=== PATIENT | male | born 1955 | race Caucasian/White ===

== ENCOUNTER → 2017-10-22 07:53 | Outpatient (CLI) | payer OTHER, SELFPAY ==
[2017-10-22 10:08] LABS: Absolute Lymphocyte Count 1.19 X10^3/ul (0.83-4.51); Absolute Neutrophil Count 3.7 X10^3/uL (2.0-7.7); Basophil# 0.02 X10^3/uL; Basophil% 0.4 % (0-1); Eosinophil# 0.11 X10^3/uL; Hematocrit 36.8 % (40-54); Hemoglobin 12.6 g/dl (13.0-16.5); Lymphocyte # 1.19 X10^3/ul (4.0); Lymphocyte % 21.5 % (19-41); Mean Corp Hgb Conc 34.2 g/gl (32-36); Mean Corpuscular Hgb 30.6 pg (27.0-32.0); Mean Corpuscular Volume 89.3 fL (80-94); Mean Platelet Vol. 9.2 fl (6.2-12.0); Monocyte# 0.53 X10^3/uL; Monocyte% 9.6 % (0-10); Neutrophil # 3.69 X10^3/uL (2.7-7.7); Neutrophil % 66.5 % (47-70); Platelet Count 234 K/mm3 (150-450); RBC Distribution Width SD 38.5 fl (35.1-43.9); Red Blood Count 4.12 M/mm3 (4.6-6.2); White Blood Count 5.5 K/mm3 (4.4-11.0)
[2017-10-22 10:09] LABS: POSITIVE COUNT NO; POSITIVE DIFFERENTIAL NO; POSITIVE MORPHOLOGY NO
[2017-10-22 10:40] LABS: Anion Gap 10 (5-15); BUN 20 mg/dL (7-18); BUN/Creat Ratio 20.3 RATIO (10-20); Calcium,Total 8.6 mg/dL (8.5-10.1); Chloride 102 mmol/L (98-107); Cholesterol 126 mg/dL (200); Creatinine, Serum 0.98 mg/dL (0.70-1.30); EST Glomerular Filtration Rate 82 mL/min (>60); Est Glom Filt Rate - Afr Amer 99 mL/min (>60); Glucose 83 mg/dL (74-106); High Density Lipoprotein 46 mg/dL; Potassium 4.4 mmol/L (3.5-5.1); Sodium Level 138 mmol/L (136-145); Triglycerides 88 mg/dL; Very Low Density Lipoprotein 18 mg/dL (5-40)
== END ==
PROVIDERS: Family Provider Family Medicine; PCP Family Medicine; Visit Provider Family Medicine
DX: Z00.00 Encounter for general adult medical examination without abnormal findings (principal); Z13.220 Encounter for screening for lipoid disorders; Z13.1 Encounter for screening for diabetes mellitus
CPT/HCPCS: 36415; 80048; 80061; 85025

== ENCOUNTER → 2018-07-24 10:18 | Outpatient (CLI) | payer OTHER, SELFPAY ==
[2018-07-24 11:49] LABS: PSA,Total - Annual Screen 0.01 ng/mL (0.00-4.00)
== END ==
PROVIDERS: Family Provider Family Medicine; PCP Family Medicine; Referring Provider Urology; Visit Provider Urology
DX: Z12.5 Encounter for screening for malignant neoplasm of prostate (principal)
CPT/HCPCS: 36415; 84153; G0103

== ENCOUNTER → 2019-07-27 07:14 | Outpatient (CLI) | payer BC, SELFPAY ==
[2019-07-27 10:20] LABS: PSA,Total- Diagnostic < 0.01 ng/mL (0.0-4.0)
== END ==
LOC: LAB.FUTURE 07:24 → MTLAB 07:30
PROVIDERS: Family Provider Family Medicine; PCP Family Medicine; Referring Provider Urology; Visit Provider Urology
DX: C61 Malignant neoplasm of prostate (principal)
CPT/HCPCS: 36415; 84153

== ENCOUNTER → 2020-08-03 07:08 | Outpatient (CLI) | payer BC, MEDICARE, SELFPAY ==
[2020-08-03 10:47] LABS: Anion Gap 5 (5-15); BUN 16 mg/dL (7-18); BUN/Creat Ratio 15.2 RATIO (10-20); Calcium,Total 9.1 mg/dL (8.5-10.1); Chloride 105 mmol/L (98-107); Cholesterol 189 mg/dL (200); Creatinine, Serum 1.05 mg/dL (0.70-1.30); EST Glomerular Filtration Rate 75 mL/min (>60); Est Glom Filt Rate - Afr Amer 91 mL/min (>60); Glucose 79 mg/dL (74-106); High Density Lipoprotein 65 mg/dL; PSA,Total- Diagnostic < 0.01 ng/mL (0.0-4.0); Potassium 4.2 mmol/L (3.5-5.1); Sodium Level 139 mmol/L (136-145); Triglycerides 92 mg/dL; Very Low Density Lipoprotein 18 mg/dL (5-40)
== END ==
PROVIDERS: PCP Family Medicine; Referring Provider Family Medicine; Visit Provider Family Medicine
DX: C61 Malignant neoplasm of prostate (principal); Z85.46 Personal history of malignant neoplasm of prostate; Z13.220 Encounter for screening for lipoid disorders; Z13.1 Encounter for screening for diabetes mellitus
CPT/HCPCS: 36415; 80048; 80061; 84153

== ENCOUNTER → 2020-08-13 16:18 | Outpatient (CLI) | payer BC, MEDICARE, SELFPAY ==
[2020-08-13 16:50] LABS: Bacteria 0 SEEN /hpf (None Seen); Mucous, Urine 0 SEEN /hpf (<or=2+); Red Blood Cells-Urine 0 SEEN /hpf (0-5); Squamous Epithelial Cells - UA 0 SEEN /hpf (0-5); White Blood Cells 0 SEEN /hpf (0-5)
[2020-08-13 17:38] LABS: Color, Urine Yellow (Yellow); Glucose, Dipstick Normal (Normal); Ketone-Dipstick Negative (Negative); Leukocyte Esterase-Dipstick Negative /ul (Negative); Nitrite-Dipstick Negative (Negative); Occult Blood-Urine Negative /ul (Negative); Protein-Dipstick Negative (Negative); Urine Bilirubin Dipstick Negative (Negative); Urine Clarity Clear (Clear); Urine Urobilinogen Normal (Normal)
== END ==
PROVIDERS: PCP Family Medicine; Visit Provider Nurse Practitioner Adult Health
DX: R31.21 Asymptomatic microscopic hematuria (principal)
CPT/HCPCS: 81001

== ENCOUNTER 2021-08-19 11:15 | Outpatient (CLI) | payer MEDICARE, BC, SELFPAY ==
[2021-08-19 14:44] LABS: PSA,Total- Diagnostic 0.01 ng/mL (0.0-4.0)
== END 2021-08-19 23:59 | disposition short-term general hospital (02) ==
LOC: MTLAB 11:20
PROVIDERS: Referring Provider Urology; Visit Provider Urology
DX: C61 Malignant neoplasm of prostate (principal)
CPT/HCPCS: 36415; 84153

== ENCOUNTER → 2022-04-04 | Outpatient (CLI) | payer MEDICARE, SELFPAY ==
[2022-04-04 15:25] LABS: Vitamin D,25 Hydroxy 33.8 ng/mL
[2022-04-04 15:30] LABS: Anion Gap 6 (5-15); BUN 16 mg/dL (7-18); BUN/Creat Ratio 15.5 RATIO (10-20); Calcium,Total 9.1 mg/dL (8.5-10.1); Chloride 103 mmol/L (98-107); Cholesterol 212 mg/dL (200); Creatinine, Serum 1.03 mg/dL (0.70-1.30); EST Glomerular Filtration Rate 77 mL/min (>60); Est Glom Filt Rate - Afr Amer 93 mL/min (>60); Glucose 92 mg/dL (74-106); High Density Lipoprotein 70 mg/dL; Potassium 4.5 mmol/L (3.5-5.1); Sodium Level 138 mmol/L (136-145); Triglycerides 89 mg/dL; Very Low Density Lipoprotein 18 mg/dL (5-40)
== END | disposition home or self-care (01) ==
PROVIDERS: PCP Family Medicine; Referring Provider Family Medicine; Visit Provider Family Medicine
DX: Z00.00 Encounter for general adult medical examination without abnormal findings (principal)
CPT/HCPCS: 36415; 80048; 80061; 82306

== ENCOUNTER → 2022-08-26 | Outpatient (CLI) | payer MEDICARE, SELFPAY ==
[2022-08-26 13:19] LABS: PSA,Total- Diagnostic < 0.01 ng/mL (0.0-4.0)
== END | disposition home or self-care (01) ==
LOC: MTLAB 10:06
PROVIDERS: PCP Family Medicine; Referring Provider Urology; Visit Provider Urology
DX: C61 Malignant neoplasm of prostate (principal)
CPT/HCPCS: 36415; 84153

== ENCOUNTER → 2023-04-06 | Outpatient (CLI) | payer MEDICARE, SELFPAY ==
[2023-04-06 15:43] LABS: Cholesterol 190 mg/dL (200); High Density Lipoprotein 73 mg/dL; Triglycerides 88 mg/dL; Very Low Density Lipoprotein 18 mg/dL (5-40)
== END | disposition home or self-care (01) ==
LOC: MFPLAB 11:07
PROVIDERS: PCP Family Medicine; Visit Provider Family Medicine
DX: E78.5 Hyperlipidemia, unspecified (principal)
CPT/HCPCS: 36415; 80061

== ENCOUNTER 2023-09-03 22:43 | Emergency (ER) | payer MEDICARE, SELFPAY ==
[2023-09-03 22:45] VITALS: BP 166/76; PULSE 50; RESP 16; TEMP 35.9; O2SAT 100; BMI 21.5
[2023-09-03 23:01] VITALS: BP 135/75; PULSE 61; RESP 16; TEMP 36.7; O2SAT 100
--- NOTE | 2023-09-03 23:14 | EKG12_ITS ---
Test Reason : CP Blood Pressure : / mmHG Vent. Rate : 048 BPM Atrial Rate : 048 BPM P-R Int : 186 ms QRS Dur : 088 ms QT Int : 410 ms P-R-T Axes : 058 021 045 degrees QTc Int : 366 ms Sinus bradycardia with sinus arrhythmia Minimal voltage criteria for LVH, may be normal variant ( Sokolow-Vazquez ) Borderline ECG Confirmed by ANNELISE MIRANDA, ALEENA ([id number]), editor newspaper KELLY CRAWFORD ([id number]) on 09/04/2023 10:29:21 AM Referred By: Confirmed By:ALEENA CASTELAN MD
[2023-09-03 23:22] LABS: Absolute Lymphocyte Count 2.59 X10^3/uL (0.83-4.51); Absolute Neutrophil Count 2.6 X10^3/uL (2.0-7.7); Basophil# 0.03 X10^3/uL; Basophil% 0.5 % (0-1); Eosinophil# 0.08 X10^3/uL; Eosinophils% 1.4 % (0-5); Hemoglobin 11.4 g/dL (13.0-16.5); Lymphocyte # 2.59 X10^3/ul (0.83-4.51); Lymphocyte % 43.8 % (19-41); Mean Corp Hgb Conc 33.5 g/dL (32-36); Mean Corpuscular Hgb 30.2 pg (27.0-32.0); Mean Corpuscular Volume 90.2 fL (80-94); Mean Platelet Vol. 8.7 fl (6.2-12.0); Monocyte# 0.58 X10^3/uL; Monocyte% 9.8 % (0-10); NRBC Flagged by Analyzer 0 % (0-5); Neutrophil # 2.62 X10^3/uL (2.7-7.7); Neutrophil % 44.3 % (47-70); Platelet Count 192 K/mm3 (150-450); RBC Distribution Width CV 12.2 % (11.6-14.6); RBC Distribution Width SD 40.2 fl (35.1-43.9); Red Blood Count 3.77 M/mm3 (4.6-6.2); White Blood Count 5.9 K/mm3 (4.4-11.0)
--- NOTE | 2023-09-03 23:23 | RAD_ITS ---
INDICATION: chest pain EXAMINATION/TECHNIQUE: X-RAY - XR Chest 1 View COMPARISON: No relevant prior comparison studies available. FINDINGS: LINES/DEVICES: None. LUNGS: Symmetric normal lung volumes. No airspace opacity or abnormal interstitial pattern. No nodule or mass. No pleural effusion or pneumothorax. MEDIASTINUM AND CARDIOVASCULAR STRUCTURES: Normal size and contour of the cardiomediastinal silhouette. No evidence of pulmonary vascular congestion. BONES AND SOFT TISSUES: No fracture or focal osseous lesion. RAD/Chest 1 View (Portable) IMPRESSION: 1. No radiographic evidence of acute cardiopulmonary disease. Electronically Signed: Sean Thomas DO at 0:02 EST ,
[2023-09-03 23:25] VITALS: O2SAT 99
--- NOTE | 2023-09-03 23:28 | EDS_ITS ---
HPI History of Present Illness Chief Complaint: Chest Pain Informant: patient and spouse/S.O. Narrative Narrative: 68-year-old healthy male presenting to the emergency department chief complaint of chest pain. Patient states he is an avid runner. He has left he states that he is in pretty good health not being treated for any medical problems. States that he ran yesterday about 3-1/2 miles did not have any problems. Tonight around 1800 hrs. after having some vegetable soup began to have a dull pressure left upper chest. Nonradiating. He states that originally lasted only a couple minutes would go away for about 30 minutes and then would return the last episode around 9:00 lasted for about 45 minutes. He does not note any associated nausea vomiting dyspnea sweating. He believes that his left hand was tingly. Currently he is not having any symptoms. He denies any change in exercise tolerance recently. [facility] Home Medications ciprofloxacin HCl 250 mg tablet 250 mg PO DAILY ##10 09/23/13 [Rx Last Taken Unknown] docusate sodium 100 mg capsule (DOK) 100 mg PO BID ##20 09/23/13 [Rx Last Taken Unknown] hydrocodone 5 mg-acetaminophen 300 mg tablet (Vicodin) 1 - 2 tab PO Q4H PRN PRN Pain #14 tabs 09/23/13 [Rx Last Taken Unknown] Allergy/AdvReac Type Severity Reaction Status Date / Time No Known Allergies Allergy Verified 09/03/23 22:47 Social History household members: spouse housing: house Smoking Status: Never smoker ROS [facility] ED Constitutional Constitutional ED: Denies chills, fever(s) or weight loss Eyes Eyes: Denies change in vision or diplopia ENT ENT ED: Denies ear pain, rhinorrhea or sore throat Cardiovascular Cardiovascular: Reports chest pain; Denies orthopnea, palpitations or racing heartbeat Respiratory/Chest Respiratory/Chest: Denies cough, dyspnea or orthopnea Gastrointestinal Gastrointestinal: Denies abdominal pain, diarrhea, nausea or vomiting Genitourinary Genitourinary ED: Denies dysuria, hematuria or urinary frequency Musculoskeletal Musculoskeletal: Denies arthralgias or myalgias Integumentary Denies abscess or rash Neurologic Neurologic: Denies headache(s) or weakness Psychiatric Psychiatric: Denies anxiety, depression, suicidal ideation or suicidal thoughts Endocrine Endocrinology: Denies polydipsia, polyphagia or polyuria Allergic/Immunologic Allergic/Immunologic ED: Denies mouth swelling, tongue swelling or urticaria EXAM Physical Exam Const Vital Signs: 09/03/23 22:45 09/03/23 23:01 09/03/23 23:02 Temperature 96.6 F L 98.1 F Temperature Source Temporal Temporal Pulse Rate 50 L 61 Respiratory Rate 16 16 Respiratory Effort Normal Blood Pressure 166/76 H 135/75 H Blood Pressure Mean 106 95 Pulse Ox 100 100 Oxygen Delivery Method Room Air Room Air 09/03/23 23:25 09/04/23 00:00 Temperature 98.1 F Temperature Source Temporal Pulse Rate 44 L Respiratory Rate 12 Respiratory Effort Blood Pressure 149/89 H Blood Pressure Mean 109 Pulse Ox 99 Oxygen Delivery Method Room Air Room Air Positive well nourished and well developed General Appearance ED: well developed HEENT Reports normocephalic, head/scalp atraumatic and moist mucous membranes Eyes PERRL and EOMs intact bilaterally Neck no lymphadenopathy, supple and no JVD Resp normal respiratory effort and clear to auscultation bilaterally Cardio regular rate, regular rhythm and no murmurs GI normal to inspection, nondistended, normoactive bowel sounds and non-tender Palpation: soft Back/Spine no CVA tenderness and normal ROM Extremity normal to inspection General Extremety ED: Negative for edema General Extremity: Negative for edema Neuro oriented x3 and CN's II-XII intact bilaterally Sensorium / Orientation: alert Motor Exam: strength 5/5 throughout Psych mental status grossly normal Mood & Affect: Negative for depressed or tearful Skin no rashes or lesions noted and no wounds Heart Score History: Slightly/Non-Suspicious ECG: Normal Age: >/= 65 years Risk Factors: No Risk Factors Troponin: </= Normal Limit Score: 2 MDM MDM MDM Narrative Medical decision making narrative: 2 sets of cardiac enzymes are normal at 6. CBC with a hemoglobin 11.4. BMP showed glucose 130. My independent interpretation of the chest x-ray is no acute process. Patient's had no events on the monitor. He has been symptom- free. He had previously taken aspirin 324 mg at home. At this point I advised follow-up with primary care. Monitoring his symptoms. As discussed with him because he is an avid runner and appears in such good shape he may be able to beat a treadmill stress test. He was advised to continue to monitor for secondary signs besides chest pain such as a decrease in exercise tolerance early fatigue dyspnea. He notes understanding will monitor follow-up return if worsening or concerns History & Record Review Discussion w/independent historian: Patient and Significant other Lab Data Attestation: I reviewed the patient's lab results. Labs: Laboratory Results - last 24 hr 09/03/23 09/04/23 23:13 01:20 WBC 5.9 RBC 3.77 L Hgb 11.4 L Hct 34.0 L MCV 90.2 MCH 30.2 MCHC 33.5 RDW Std Deviation 40.2 RDW Coeff of Benito 12.2 Plt Count 192 MPV 8.7 Immature Gran % (Auto) 0.200 Neut % (Auto) 44.3 L Lymph % (Auto) 43.8 H [place] % (Auto) 9.8 Eos % (Auto) 1.4 Baso % (Auto) 0.5 Absolute Neuts (auto) 2.6 Absolute Lymphs (auto) 2.59 Nucleated RBC % 0 Sodium 138 Potassium 4.2 Chloride 107 Carbon Dioxide 26.0 Anion Gap 5 BUN 19 H Creatinine 0.98 Estim Creat Clear Calc 67.58 Est GFR (MDRD) Af Amer 98 Est GFR (MDRD) Non-Af 81 BUN/Creatinine Ratio 19.3 Glucose 130 H Calcium 8.6 Troponin I High Sens 6 6 Radiography Diagnostic Testing: Clinical Impression(s) from Imaging Studies Chest X-Ray 09/03/23 23:23 IMPRESSION: 1. No radiographic evidence of acute cardiopulmonary disease. Electronically Signed: Sean Thomas DO at 0:02 EST , EKG Initial EKG: Attestation: I personally reviewed and interpreted this EKG as follows: Comments: Sinus bradycardia with a ventricular rate of 48 bpm. No concerning features of ACS noted. 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 Next of kin: [place] law dictates a PRIORITY LIST for identifying legal decision-maker/legal next of kin in the following order (LNOK): 1st: The patient?s legal guardian, if any 2nd: The patient's spouse (if status is questionable, consult Risk Management) 3rd: The patient?s adult child(fior) (majority, if multiple children) 4th: The patient?s parents 5th: The patient?s adult siblings (majority, if multiple children siblings)
[2023-09-03 23:44] LABS: Anion Gap 5 (5-15); BUN 19 mg/dL (7-18); BUN/Creat Ratio 19.3 RATIO (10-20); Calcium,Total 8.6 mg/dL (8.5-10.1); Chloride 107 mmol/L (98-107); Creatinine, Serum 0.98 mg/dL (0.70-1.30); EST Glomerular Filtration Rate 81 mL/min (>60); Est Glom Filt Rate - Afr Amer 98 mL/min (>60); Estimated Creatinine Clearance 67.58 ml/min; Glucose 130 mg/dL (74-106); Potassium 4.2 mmol/L (3.5-5.1); Sodium Level 138 mmol/L (136-145); Troponin-I HS (w/2H Reflex) 6 pg/mL (3.0-78.0)
[2023-09-04] VITALS: BP 149/89; PULSE 44; RESP 12; TEMP 36.7
[2023-09-04 01:00] VITALS: BP 132/72; PULSE 51; RESP 16; TEMP 37.2
[2023-09-04 01:19] LABS: Reflex Troponin-HS? (from REC) Y
[2023-09-04 01:45] LABS: Troponin-I HS 6 pg/mL (3.0-78.0)
[2023-09-04 02:00] VITALS: BP 149/89; PULSE 51; RESP 16; TEMP 37.2
[2023-09-04 02:08] VITALS: BP 143/72; PULSE 50; RESP 16; TEMP 36.6; O2SAT 100
== END 2023-09-04 02:13 | disposition home or self-care (01) ==
PROVIDERS: Emergency Provider Emergency Medicine; PCP Family Medicine; Visit Provider Emergency Medicine
DX: R07.9 Chest pain, unspecified (principal)
CPT/HCPCS: 71045; 80048; 84484; 85025; 93005; 99284; A4216

== ENCOUNTER → 2024-04-12 | Outpatient (CLI) | payer MEDICARE, SELFPAY ==
[2024-04-12 16:05] LABS: Anion Gap 6 (5-15); BUN 18 mg/dL (7-18); BUN/Creat Ratio 17.8 RATIO (10-20); Calcium,Total 9.4 mg/dL (8.5-10.1); Chloride 104 mmol/L (98-107); Cholesterol 195 mg/dL (200); Creatinine, Serum 1.01 mg/dL (0.70-1.30); EST Glomerular Filtration Rate 78 mL/min (>60); Est Glom Filt Rate - Afr Amer 94 mL/min (>60); Glucose 97 mg/dL (74-106); High Density Lipoprotein 71 mg/dL; PSA,Total- Diagnostic 0.01 ng/mL (0.0-4.0); Potassium 4.7 mmol/L (3.5-5.1); Sodium Level 139 mmol/L (136-145); Triglycerides 111 mg/dL; Very Low Density Lipoprotein 22 mg/dL (5-40)
== END | disposition home or self-care (01) ==
PROVIDERS: PCP Family Medicine; Referring Provider Family Medicine; Visit Provider Family Medicine
DX: Z00.00 Encounter for general adult medical examination without abnormal findings (principal); E78.5 Hyperlipidemia, unspecified; Z85.46 Personal history of malignant neoplasm of prostate
CPT/HCPCS: 36415; 80048; 80061; 84153

== ENCOUNTER 2024-05-11 14:40 | Outpatient (CLI) | payer SELFPAY ==
--- NOTE | 2024-05-11 14:45 | CT_ITS ---
STUDY: CT CHEST WITHOUT CONTRAST REASON FOR EXAM: Male, 69 years old. SCREEN RADIATION DOSAGE (If Supplied By Facility): CTDIvol = ( 12.19 ) mGy, DLP = ( 219.42 ) mGycm TECHNIQUE: Transaxial imaging was performed without the administration of intravenous contrast material. Cardiac over read examination. Individualized dose optimization techniques were used for this CT. COMPARISON: No relevant priors. FINDINGS: CHEST Minimal increased linear markings at the lung bases suggestive of underlying atelectasis and/or scarring. There is no demonstrated pleural abnormality. There are calcifications of the coronary arteries. There are small lymph nodes within the mediastinum, which are normal in size and morphology most compatible with reactive lymph hyperplasia. Normal hilar regions. Normal unenhanced pulmonary arteries. Normal aorta arch and descending thoracic aorta. Normal osseous structures. There is no demonstrated abnormality of the visualized upper abdomen. CT/Limited Chest CT Cardiac Only IMPRESSION: Coronary artery calcification. Electronically Signed: Rodrigue Dorantes MD at 9:22 EDT ,
--- NOTE | 2024-05-11 16:37 | CA.SCORE ---
Calcium Scoring Date of Study:: 05/11/24 Coronary Calcium Scoring: High-resolution Computed Tomographic imaging of the chest was performed on [05/11/24 ], with particular attention paid to the coronary arteries. Images from the examination were analyzed for the presence and extent of coronary artery calcification , using coronary calcium quantification software. The patient tolerated the procedure well and there were no complications. The results of the coronary calcification analysis are provided below. Findings Coronary Artery Left Main (LM): 0 Left Anterior Descending (LAD): 95 Left Circumflex (LCX): 0 Right Coronary Artery (RCA): 0 Total Agatston Score: 95 Percentile Rankin-50% Calcium Scoring Interpretation: Different methods to categorize the overall amount of coronary plaque. Overall amount CAC SIS Visual of coronary plaque P1 Mild -100 <2 1-2 vessels with mild amount of plaque P2 Moderate 101-300 3-4 1-2 vessels with moderate amount, 3 vessels with mild amount of plaque P3 Severe 301-999 5-7 3 vessels with moderate amount, 1 vessel with severe amount of plaque P4 Extensive >1000 >8 2-3 vessels with severe amount of plaque Calcium Score: Mild: 1-2 vessels w/mild amount of plaque Conclusion: Mild plaquing noted.
== END 2024-05-11 23:59 | disposition home or self-care (01) ==
LOC: CT 14:44
PROVIDERS: PCP Family Medicine; Referring Provider Family Medicine; Visit Provider Family Medicine
DX: Z00.00 Encounter for general adult medical examination without abnormal findings (principal); I25.10 Atherosclerotic heart disease of native coronary artery without angina pectoris; I25.83 Coronary atherosclerosis due to lipid rich plaque
CPT/HCPCS: 75571; 76380

== ENCOUNTER → 2024-06-06 | Outpatient (CLI) | payer MEDICARE, SELFPAY ==
--- NOTE | 2024-06-06 10:18 | STRESSREP_ITS ---
Stress Test Report Date: 06/06/2024 Procedure: Exercise tolerance test/imaging study Indications: Coronary artery disease Consent: Per the patient Procedure: The patient exercised on a Edison protocol for 12 minutes achieving a peak heart rate of 146 bpm (96% predicted maximal heart rate) with a peak blood pressure 176/70 mmHg and a peak MET capacity of 13.7 METs. The baseline ECG demonstrated sinus rhythm. The peak exercise ECG demonstrated ST changes in inferior and lateral leads suggestive of ischemia. There were no cardiac dysrhythmias pretest, during exercise, or recovery. The functional capacity was considered excellent. There was no complaint of chest discomfort during exercise or recovery. The examination was discontinued secondary to target heart rate being achieved. The patient was injected with 10.1 mCi of technetium 99m Cardiolite and subsequently rest SPECT Cardiolite nuclear imaging was obtained in the horizonta l long, vertical long, and short axis views. Post-exercise, the patient was injected with 31.7 mCi of technetium 99m Cardiolite and subsequently stress SPECT Cardiolite nuclear imaging was obtained in the horizontal long, vertical long, and short axis views. A gated Cardiolite study at peak stress was obtained. Rest and stress SPECT Cardiolite nuclear imaging status post realignment, normalization, and attenuation correction, demonstrates the appearance of relative uniform tracer uptake and myocardial perfusion appearing within normal limits. There is end systolic thickening and brightening. The gated Cardiolite study demonstrates myocardial thickening and inward wall motion. The reported LVEF is 57%. Impression: 1. Technically adequate (percent predicted maximal heart rate greater than 85%) exercise tolerance test. Excellent functional capacity for age. No complaints of chest pain 2. Peak exercise ECG with ST changes suggestive of ischemia 3. There were no cardiac dysrhythmias pretest, during exercise, or recovery 4. Rest and stress SPECT Cardiolite nuclear imaging demonstrate relative uniform tracer uptake and myocardial perfusion appearing within normal limits. 5. The gated Cardiolite study reports an LVEF of 57%. This note was generated with [employer] software. It may contain incorrect words, spelling, and punctuation that were not noted in checking the note before signing.
== END | disposition home or self-care (01) ==
PROVIDERS: PCP Family Medicine; Referring Provider Family Medicine; Visit Provider Family Medicine
DX: R94.30 Abnormal result of cardiovascular function study, unspecified (principal); I25.10 Atherosclerotic heart disease of native coronary artery without angina pectoris
CPT/HCPCS: 78452; 93017; A9500; A4216

== ENCOUNTER → 2024-12-05 | Outpatient (CLI) | payer MEDICARE, SELFPAY ==
--- NOTE | 2024-12-05 09:14 | RAD_ITS ---
PROCEDURE: SHOULDER MIN 2 VIEWS 12/05/2024 REASON FOR EXAM: PAIN TECHNIQUE: Four views of the right shoulder COMPARISON: None FINDINGS: Bones: Unremarkable. Joints: No significant joint space narrowing is seen. Soft tissues: Soft tissues are unremarkable. Other: RAD/Shoulder min 2 Views IMPRESSION: NO ACUTE FRACTURE OR DISLOCATION. Reading Location: [place] [id number]
--- NOTE | 2024-12-05 09:17 | RAD_ITS ---
PROCEDURE: CLAVICLE 12/05/2024 REASON FOR EXAM: PAIN TECHNIQUE: 2 view(s) of the right clavicle COMPARISON: None FINDINGS: RIGHT CLAVICLE: Bones right: Unremarkable Joints right: Unremarkable Soft tissues right: Unremarkable RAD/Clavicle IMPRESSION: NO EVIDENCE OF CLAVICLE FRACTURE Reading Location: [place] [id number]
== END | disposition home or self-care (01) ==
LOC: MTRAD 09:12
PROVIDERS: PCP Family Medicine; Referring Provider Family Medicine; Visit Provider Family Medicine
DX: M89.8X1 Other specified disorders of bone, shoulder (principal); M25.519 Pain in unspecified shoulder
CPT/HCPCS: 73000; 73030

== ENCOUNTER 2025-03-22 09:46 | Outpatient (RCR) | payer MEDICARE, SELFPAY ==
--- NOTE | 2025-03-22 11:01 | HP.PTEVAL_ITS ---
Patient's Visit Information Visit Information Visit Information: LILLIANA FLORES is a 69 year old M referred to Physical Therapy by Dr. Bienvenido Ahumada MD with a diagnosis of R shoulder pain. Date of Evaluation: 03/22/25 Physical Therapist: Lisbet Kinsey MPT Visit Plan Plan: Pt to call in after MRI and discuss POC at that point. For now pt is to do corner stretch, supine wand flexion, mid rows with blue band, B shoulder ER with green band until results of MRI. Feel pt could benefit from scapular and postural exercises with addition of RC strength with HEP depending on MRI results. Pt will call in after MRI Subjective Subjective: R shoulder started to get worse 6 months ago to the point just throwing a baseball to 11 year old hurt. 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 It bothers him to sleep on the R side. He wants to get back to doing all the things. 20 years ago he would have achy shoulder playing volleyball but now it is worse. Dr Ahumada thought possible RCT and is scheduled for MRI this Thursday. He reports that where his collar bone attaches he has noticed a bigger area there. He is R handed. He has been on meloxicam and did help to take the edge off the pain and he could push harder than he was before. Pain R shoulder pain: Pain Intensity (Out of 10): 0 Pain Intensity Range: 6 Comment: with reaching and prunning Objective Objective: R handed: R 95# and L 75 C-spine AROM: WFL and no pain UE AROM: R shoulder flex 145 and L 168 R shoulder ABD 170 and L 180 R shoulder IR T12 and L T6 R shoulder ER 64 and L 69 UE MMT: R shoulder FLex 9.8 and L 10.5 R shoulder ABD 11. and L 12.9 R shoulder ER 13.2 and L 14.8 R shoulder IR 13.5 and L 12.4 - Empty Can B for pain and weakness Posture: protracted shoulders - sign for impingement PROM end range flexion a little painful but able to get there Balance/Special Test Scores Quick DASH Score: 29.5450 Goals Goal 1:: I HEP Goal Time Frame: 6-8 Weeks Goal 2:: Increase pain free AROM R shoulder Goal Time Frame: 6-8 Weeks Goal 3:: Sit with more upright posture and less protraction Goal Time Frame: 6-8 Weeks Goal 4:: Increase R shoulder strength (at the time of the eval: R shoulder FLex 9.8 and L 10.5 R shoulder ABD 11. and L 12.9 R shoulder ER 13.2 and L 14.8 R shoulder IR 13.5 and L 12.4). Goal Time Frame: 6-8 Weeks Rehabilitation Potential Rehabilitation Potential: Good Anticipated Interventions Patient/Client Instruction: Educate patient on: Condition and Plan of Care For the Purpose of:: To decrease pain, To increase ROM, To improve nutrient delivery to tissue, To improve muscle performance and motor function, To improve ability to perform ADL's, To increase tolerance to activity/condition/position, To improve performance and independence with ADL's, To improve health of tissue, To decrease soft tissue restriction and To increase flexibility/ROM Therapeutic Exercise to Include: Strength training, Postural training, Flexibilty training, Neuromotor development, Passive ROM, Active ROM and Scapular Strength/Stabilization For the Purpose of:: To decrease pain, To increase ROM, To improve nutrient delivery to tissue, To improve muscle performance and motor function, To improve ability to perform ADL's, To increase tolerance to activity/condition/position, To improve performance and independence with ADL's, To decrease level of supervision to perform tasks, To improve health of tissue, To decrease soft tissue restriction and To increase flexibility/ROM Manual Therapy Techniques to Include: Passive ROM and Soft tissue mobilization For the Purpose of:: To decrease pain, To decrease swelling/inflammation, To increase ROM, To improve nutrient delivery to tissue, To improve muscle performance and motor function, To improve ability to perform ADL's, To increase tolerance to activity/condition/position, To improve health of tissue, To decrease soft tissue restriction and To increase flexibility/ROM Text: Thank you for the opportunity to evaluate your patient. For Medicare and Medicare HMO plans, please review the plan of care and approve it. It will need to be FAXED BACK to us at [phone] for Medicare purposes. For Medicare only, by signing this I certify the plan of care. Please let me know if there are questions or concerns regarding this plan of care. Physician Signature: Date:
--- NOTE | 2025-06-21 13:38 | HP.PT.NRP ---
Patient Information Patient Information: LILLIANA FLORES was seen in my office for initial evaluation on 03/22/25. The following Plan of Care was established for this patient: Anticipated Interventions Patient/Client Instruction: Educate patient on: Condition and Plan of Care For the Purpose of:: To decrease pain, To increase ROM, To improve nutrient delivery to tissue, To improve muscle performance and motor function, To improve ability to perform ADL's, To increase tolerance to activity/condition/position, To improve performance and independence with ADL's, To improve health of tissue, To decrease soft tissue restriction and To increase flexibility/ROM Therapeutic Exercise to Include: Strength training, Postural training, Flexibilty training, Neuromotor development, Passive ROM, Active ROM and Scapular Strength/Stabilization For the Purpose of:: To decrease pain, To increase ROM, To improve nutrient delivery to tissue, To improve muscle performance and motor function, To improve ability to perform ADL's, To increase tolerance to activity/condition/position, To improve performance and independence with ADL's, To decrease level of supervision to perform tasks, To improve health of tissue, To decrease soft tissue restriction and To increase flexibility/ROM Manual Therapy Techniques to Include: Passive ROM and Soft tissue mobilization For the Purpose of:: To decrease pain, To decrease swelling/inflammation, To increase ROM, To improve nutrient delivery to tissue, To improve muscle performance and motor function, To improve ability to perform ADL's, To increase tolerance to activity/condition/position, To improve health of tissue, To decrease soft tissue restriction and To increase flexibility/ROM Last Seen Last Seen: This patient was last seen in our office 03/22/25. Pertinent comments regarding their Physical therapy will appear below: FUENTES PT At this point I will be discontinuing this patient from physical therapy. I would be happy to see this patient again in the future if found appropriate by the physician. Thank you! Lisbet Kinsey, MPT Balance/Gait/Functional tests Balance/Special Test Scores Quick DASH Score: [phone]
== END 2025-03-22 19:00 | disposition home or self-care (01) ==
LOC: PT 09:46
PROVIDERS: PCP Family Medicine; Referring Provider Orthopaedic Surgery Sports Medicine; Visit Provider Orthopaedic Surgery Sports Medicine
DX: M25.511 Pain in right shoulder (principal)
CPT/HCPCS: 97161

== ENCOUNTER → 2025-03-25 | Outpatient (CLI) | payer MEDICARE, SELFPAY ==
--- OUTSIDE RECORDS SUMMARY | 2025-03-25 07:23 | XMS RPT_ITS | CCD ---
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 Gill Primary Care Provider Krys MIRANDA, Dr. Gill Attending Provider Krys MIRANDA, Dr. Gill Referring Provider Brandyn MIRANDA, Bienvenido Attending Provider [phone] Donte Hayes Attending Unavailable Marcano, Jairo Referring Unavailable Marcano, Jairo Primary Care Unavailable Marcano, Jairo Consulting Unavailable PepitoJames daley Attending Unavailable Marcano, Jairo Referring Unavailable Marcano, Jairo Primary Care Unavailable Marcano, Jairo Consulting Unavailable Marcano, Jairo Referring Unavailable Marcano, Jairo Primary Care Unavailable Mollison, Bienvenido Attending Unavailable Marcano, Jairo Referring Unavailable Marcano, Jairo Attending Unavailable Marcano, Jaior Primary Care Unavailable Marcano, Jairo Attending Unavailable Marcano, Jairo Referring Unavailable Marcano, Jairo Primary Care Unavailable Marcano, Jairo Primary Care Unavailable Mollison, Bienvenido Attending Unavailable Mollison, Bienvenido Referring Unavailable Marcano, Jairo Primary Care Unavailable Mollison, Bienvenido Attending Unavailable Mollison, Bienvenido Referring Unavailable Marcano, Jairo Attending Unavailable Marcano, Jairo Referring Unavailable Marcano, Jairo Primary Care Unavailable Marcano, Jairo Attending Unavailable Marcano, Jairo Referring Unavailable Marcano, Jairo Primary Care Unavailable Medications Current Medications Medication Drug Class(es) Dates Sig (Normalized) Sig (Original) Moville (Nk) (1 source) Start: 09-04-2023 Moville (Nk) Active September 04, 2023 12:00am rosuvastatin 5 mg oral capsule (1 source) HMG-CoA Reductase Inhibitor Start: 03-17-2025 take 1 tablet by mouth once daily Rosuvastatin 5 mg tablet Active 5 mg PO daily March 17, 2025 12:00am Completed/Discontinued Medications Medication Drug Class(es) Dates Sig (Normalized) Sig (Original) acetaminophen 300 mg / HYDROcodone bitartrate 5 mg oral tablet (5 sources) Opioid Agonist Start: 09-23-2013 End: 09-04-2023 Hydrocodone-Acetam inophen (Vicodin 5-300 Mg Tablet) 1 EACH tablet Discontinued 1 - 2 {tbl} PO EVERY 4 HOURS NEEDED as needed for Pain September 23, 2013 1:00am September 04, 2023 3:04am May substitute Hydrocodone/Acetam inophen 5/325 mg ciprofloxacin 250 mg oral tablet (5 sources) Quinolone Antimicrobial Start: 09-23-2013 End: 09-04-2023 take 1 tablet by mouth once daily Ciprofloxacin Hcl 250 MG tablet Discontinued 250 mg PO DAILY 10 September 23, 2013 1:00am September 04, 2023 3:04am docusate sodium 100 mg oral capsule (5 sources) Start: 09-23-2013 End: 09-04-2023 take 1 capsule by mouth twice daily Docusate Sodium (Colace) 100 MG capsule Discontinued 100 mg PO TWICE A DAY 20 September 23, 2013 1:00am September 04, 2023 3:04am Problems Active Problems Problem Classification Problem Date Documented Da te Episodic/Chronic Nonspecific chest pain (2 sources) Chest pain; Translations: [Chest pain, unspecified] 09-04-2023 Episodic Other non-traumatic joint disorders (1 source) Pain in left shoulder; Translations: [Left shoulder pain] 03-17-2025 Episodic Other non-traumatic joint disorders (4 sources) Pain in right shoulder; Translations: [Right shoulder pain] Onset: 03-17-2025 03-17-2025 Episodic Unclassified (1 source) Right shoulder pain Unclassified (2 sources) M25.511 - Pain in right shoulder Past or Other Problems Problem Classification Problem Date Documented Da te Episodic/Chronic Other bone disease and musculoskeletal deformities (1 source) Other specified disorders of bone, shoulder; Translations: [Other specified disorders of bone, shoulder] Onset: 12-07-2024 Episodic Other screening for suspected conditions (not mental disorders or infectious disease) (2 sources) Abnormal result of cardiovascular function study, unspecified; Translations: [Abnormal result of cardiovascular function study, unspecified] Onset: 06-21-2024 Episodic Results Test Name Value Interpretation Reference Range Facility Inital Evaluation (1) - PTon 03-22-2025 Inital Evaluation (1) - [facility] [address] [place] [address] / REHABILITATION SERVICES INITIAL EVALUATION MR#: [id number] Acct: [id number] Name: LILLIANA FLORES Rep #: [id number] : 1955 69 From: Lisbet ESCAMILLA Referring Dr.: Dr. Bienvenido Ahumada MD Status: R EG RCR Insurance: MMO MEDICARE SELF PAY INSURANCE Patient's Visit Information Visit Information Visit Information: LILLIANA FLORES is a 69 year old M referred to Physical Therapy by Dr. Bienvenido Ahumada MD with a diagnosis of R shoulder pain. Date of Evaluation: 03/22/25 Physical Therapist: ANDI Boyd Visit Plan Plan: Pt to call in after MRI and discuss POC at that point. For now pt is to do corner stretch, supine wand flexion, mid rows with blue band, B shoulder ER with green band until results of MRI. Feel pt could benefit from scapular and postural exercises with addition of RC strength with HEP depending on MRI results. Pt will call in after MRI Subjective Subjective: R shoulder started to get worse 6 months ago to the point just throwing a baseball to 11 year old hurt. 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 It bothers him to sleep on the R side. He wants to get back to doing all the things. 20 years ago he would have achy shoulder playing volleyball but now it is worse. Dr Ahumada thought possible RCT and is scheduled for MRI this Thursday. He reports that where his collar bone attaches he has noticed a bigger area there. He is R handed. He has been on meloxicam and did help to take the edge off the pain and he could push harder than he was before. Pain R shoulder pain: Pain Intensity (Out of 10): 0 Pain Intensity Range: 6 Comment: with reaching and prunning Objective Objective: R handed: R 95# and L 75 C-spine AROM: WFL and no pain UE AROM: R shoulder flex 145 and L 168 R shoulder ABD 170 and L 180 R shoulder IR T12 and L T6 R shoulder ER 64 and L 69 UE MMT: R shoulder FLex 9.8 and L 10.5 R shoulder ABD 11. and L 12.9 R shoulder ER 13.2 and L 14.8 R shoulder IR 13.5 and L 12.4 - Empty Can B for pain and weakness Posture: protracted shoulders - sign for impingement PROM end range flexion a little painful but able to get there Balance/Special Test Scores Quick DASH Score: 29.5450 Goals Goal 1:: I HEP Goal Time Frame: 6-8 Weeks Goal 2:: Increase pain free AROM R shoulder Goal Time Frame: 6-8 Weeks Goal 3:: Sit with more upright posture and less protraction Goal Time Frame: 6-8 Weeks Goal 4:: Increase R shoulder strength (at the time of the eval: R shoulder FLex 9.8 and L 10.5 R shoulder ABD 11. and L 12.9 R shoulder ER 13.2 and L 14.8 R shoulder IR 13.5 and L 12.4). Goal Time Frame: 6-8 Weeks Rehabilitation Potential Rehabilitation Potential: Good Anticipated Interventions Patient/Client Instruction: Educate patient on: Condition and Plan of Care For the Purpose of:: To decrease pain, To increase ROM, To improve nutrient delivery to tissue, To improve muscle performance and motor function, To improve ability to perform ADL's, To increase tolerance to activity/condition/ position, To improve performance and independence with ADL's, To improve health of tissue, To decrease soft tissue restriction and To increase flexibility/ROM Therapeutic Exercise to Include: Strength training, Postural training, Flexibilty training, Neuromotor development, Passive ROM, Active ROM and Scapular Strength/Stabilizat ion For the Purpose of:: To decrease pain, To increase ROM, To improve nutrient delivery to tissue, To improve muscle performance and motor function, To improve ability to perform ADL's, To increase tolerance to activity/condition/ position, To improve performance and independence with ADL's, To decrease level of supervision to perform tasks, To improve health of tissue, To decrease soft tissue restriction and To increase flexibility/ROM Manual Therapy Techniques to Include: Passive ROM and Soft tissue mobilization For the Purpose of:: To decrease pain, To decrease swelling/inflammati on, To increase ROM, To improve nutrient delivery to tissue, To improve muscle performance and motor function, To improve ability to perform ADL's, To increase tolerance to activity/condition/ position, To improve health of tissue, To decrease soft tissue restriction and To increase flexibility/ROM Text: Thank you for the opportunity to evaluate your patient. For Medicare and Medicare HMO plans, please review the plan of care and approve it. It will need to be FAXED BACK to us at [phone] for Medicare purposes. For Medicare only, by signing this I certify the plan of care. Please let me know if there are questions or concerns regarding this plan (more content not included)... [facility] Orthopedic Visit Reporton Orthopedic Visit Report [facility] [address] [place] [address] OFFICE VISIT Date of Service: 03/17/25 MR#: [id number] Acct: [id number] Name: LILLIANA FLORES Rep #: [id number] : 1955 Provider: Dr. Bienvenido prieto MD Age/Sex: 69/M Location[place] [facility] Status: Signed Intake Vital Signs 09/03/23 22:45 03/17/25 13:45 Height 5 ft 9 in 5 ft 9 in Weight: 139 lb 6 oz BMI 20.5 Intake Visit Reasons: RIGHT SHOULDER Chief Complaint: Right shoulder pain Accompanied by: Self Is patient in pain?: No Allergies No Known Allergies Allergy (Verified 03/17/25 13:51) Medications ???Medication ???Instructions ???Recorded ???Confirmed ???Type rosuvastatin 5 mg tablet 5 mg PO QDAY 03/17/25 03/17/25 His tory Have you fallen in the past year?: No PFSH Medical History (Updated 03/17/25 @ 14:10 by Bienvenido Ahumada MD) Right shoulder pain Left shoulder pain Surgical History (Updated 03/17/25 @ 13:52 by Bethany Patton MA) H/O thumb surgery History of prostate surgery S/P ACL surgery Social History household members: spouse housing: house Smoking Status: Never smoker HPI RIGHT SHOULDER Details: This documentation accurately reflects the service provided and the decisions made by me, Dr. Bienvenido Ahumada MD 03/17/25 1283. Part of today???s visit was documented by [ ], acting as scribe. LILLIANA FLORES is a 69 year old M here today for R shoulder pain. years. worse with volleyball and arms over shoulder height. wrose in six months. been doing daily push ups. getting worse. and some medial clavicle pain and prominence. worse with throwing and at night. no PT, no injections or shoulder surgery. had prostate CA 10 years ago. no fall or dramatic injury. enjoys endurance sports Ortho Exam General General: Yes no acute distress Neurologic: Yes alert and Yes oriented x3 Psychologic: Yes reasonable and appropriate Right Shoulder Skin/Wound: Yes CDI, No ecchymosis, No erythema and No swelling Testing: Positive Hawkin's, Neer's, AROM-Forward Elevation 0-180, AROM-External Rotation at side 0- 60, empty can and belly press normal; Negative Speed's, TTP Biceps, TTP AC Joint, Drop Arm, cross arm or scapular winging SHOULDER: normal motor and sens to ax nerve, and MRU and AIN/PIN strength fe and er 5/5. stable SC joint. moderate prominence. mild pain. Left Shoulder Skin/Wound: Yes CDI, No ecchymosis, No erythema and No swelling Testing: No Hawkin's, No Neer's, No Speed's, No TTP Biceps, No TTP AC Joint, Yes AROM-Forward Elevation 0-180, Yes AROM-External Rotation at side 0-60, No empty can, No Kingman, No scapular winging and Yes belly press normal SHOULDER: normal motor and sens to axillary N, MRU and AIN/PIN. Hand warm well perfused normal radial pulse Supplemental Info [facility] Imaging Services [address] [place] [address] Shoulder min 2 Views MR#: [id number] Acct: [id number] Name: LILLIANA FLORES Rep #: [id number] : 1955 M 69 From: Rodrigue Dorantes MD PCP: Dr. Jairo Marcano MD Status: REG CLI Study: Shoulder min 2 Views Date of Exam: 12/05/24 Exam# [id number] Ordering Dr: Jairo Marcano MD PROCEDURE: SHOULDER MIN 2 VIEWS 12/05/2024 REASON FOR EXAM: PAIN TECHNIQUE: Four views of the right shoulder COMPARISON: None FINDINGS: Bones: Unremarkable. Joints: No significant joint space narrowing is seen. Soft tissues: Soft tissues are unremarkable. Other: RAD/Shoulder min 2 Views IMPRESSION: NO ACUTE FRACTURE OR DISLOCATION. Reading Location: [facility] Imaging Services [address] [place] [id number] Clavicle MR#: [id number] Acct: [id number] Name: LILLIANA FLORES Rep #: [id number] : 1955 M 69 From: Rodrigue Dorantes MD PCP: Dr. Jairo Marcano MD Status: REG CLI Study: Clavicle Date of Exam: 12/05/24 Exam# [id number] Ordering Dr: Jairo Marcano MD PROCEDURE: CLAVICLE 12/05/2024 REASON FOR EXAM: PAIN TECHNIQUE: 2 view(s) of the right clavicle COMPARISON: None FINDINGS: RIGHT CLAVICLE: Bones right: Unremarkable Joints right: Unremarkable Soft tissues right: Unremarkable RAD/Clavicle IMPRESSION: NO EVIDENCE OF CLA (more content not included)... [facility] Clavicleon 12-05-2024 Clavicle [facility] Imaging Services [address] [place], [place] [address] Clavicle MR#: [id number] Acct: [id number] Name: LILLIANA FLORES Rep #: [id number] : 1955 M 69 From: Rodrigue rebolledo MD PCP: Dr. Jairo Marcano MD Status: REG CLI Study: Clavicle Date of Exam: 12/05/24 Exam# [id number] Ordering Dr: Jairo Marcano MD PROCEDURE: CLAVICLE 12/05/2024 REASON FOR EXAM: PAIN TECHNIQUE: 2 view(s) of the right clavicle COMPARISON: None FINDINGS: RIGHT CLAVICLE: Bones right: Unremarkable Joints right: Unremarkable Soft tissues right: Unremarkable RAD/Clavicle IMPRESSION: NO EVIDENCE OF CLAVICLE FRACTURE Reading Location: [place] [address] CC: Dr. Jairo Marcano MD Drop Machine Operator: Signed [facility] Shoulder min 2 Viewson 12-05 Shoulder min 2 Views [facility] Imaging Services [address] [place] [address] Shoulder min 2 Views MR#: [id number] Acct: [id number] Name: LILLIANA FLORES Rep #: [id number] : 1955 M 69 From: Rodrigue rebolledo MD PCP: Dr. Jairo Marcano MD Status: REG CLI Study: Shoulder min 2 Views Date of Exam: 12/05/24 Exam# [id number] Ordering Dr: Jairo Marcano MD PROCEDURE: SHOULDER MIN 2 VIEWS 12/05/2024 REASON FOR EXAM: PAIN TECHNIQUE: Four views of the right shoulder COMPARISON: None FINDINGS: Bones: Unremarkable. Joints: No significant joint space narrowing is seen. Soft tissues: Soft tissues are unremarkable. Other: RAD/Shoulder min 2 Views IMPRESSION: NO ACUTE FRACTURE OR DISLOCATION. Reading Location: [place] [address] CC: Dr. Jairo Marcano MD Drop Machine Operator: Signed [facility] Stress Reporton 06-06-2024 Stress Report [facility] [address] [place] [address] MR#: [id number] Acct: [id number] Name: LILLIANA FLORES Rep #: [id number] : 1955 69 From: Donte Hayes MD Primary Care: Dr. Jairo Marcano MD Status: REG CLI Referring Dr: Jairo Marcano MD Sex: M C Stress Test Report Date: 06/06/2024 Procedure: Exercise tolerance test/imaging study Indications: Coronary artery disease Consent: Per the patient Procedure: The patient exercised on a Edison protocol for 12 minutes achieving a peak heart rate of 146 bpm (96% predicted maximal heart rate) with a peak blood pressure 176/70 mmHg and a peak MET capacity of 13.7 METs. The baseline ECG demonstrated sinus rhythm. The peak exercise ECG demonstrated ST changes in inferior and lateral leads suggestive of ischemia. There were no cardiac dysrhythmias pretest, during exercise, or recovery. The functional capacity was considered excellent. There was no complaint of chest discomfort during exercise or recovery. The examination was discontinued secondary to target heart rate being achieved. The patient was injected with 10.1 mCi of technetium 99m Cardiolite and subsequently rest SPECT Cardiolite nuclear imaging was obtained in the horizontal long, vertical long, and short axis views. Post-exercise, the patient was injected with 31.7 mCi of technetium 99m Cardiolite and subsequently stress SPECT Cardiolite nuclear imaging was obtained in the horizontal long, vertical long, and short axis views. A gated Cardiolite study at peak stress was obtained. Rest and stress SPECT Cardiolite nuclear imaging status post realignment, normalization, and attenuation correction, demonstrates the appearance of relative uniform tracer uptake and myocardial perfusion appearing within normal limits. There is end systolic thickening and brightening. The gated Cardiolite study demonstrates myocardial thickening and inward wall motion. The reported LVEF is 57%. Impression: 1. Technically adequate (percent predicted maximal heart rate greater than 85%) exercise tolerance test. Excellent functional capacity for age. No complaints of chest pain 2. Peak exercise ECG with ST changes suggestive of ischemia 3. There were no cardiac dysrhythmias pretest, during exercise, or recovery 4. Rest and stress SPECT Cardiolite nuclear imaging demonstrate relative uniform tracer uptake and myocardial perfusion appearing within normal limits. 5. The gated Cardiolite study reports an LVEF of 57%. This note was generated with [employer] software. It may contain incorrect words, spelling, and punctuation that were not noted in checking the note before signing. 06/06/24 1021 Date Donte Hayes MD CC: Dr. Jairo Marcano MD Date Dictated: 06/06/24 1018 Date Transcribed: 06/06/24 1018 Drop Machine Operator: AR Signed [facility] Coronary Angiography CTon Coronary Angiography CT [facility] Imaging Services [address] [place] [address] 05/11/24 1637 MR#: [id number] Acct: [id number] Name: LILLIANA FLORES Rep #: [id number] : 1955 69 From: James Beyer MD PCP: Dr. Jairo Marcano MD Status:REG CLI Y Location: CT Calcium Scoring Date of Study:: 05/11/24 Coronary Calcium Scoring: High-resolution Computed Tomographic imaging of the chest was performed on [05/11/24 ], with particular attention paid to the coronary arteries. Images from the examination were analyzed for the presence and extent of coronary artery calcification , using coronary calcium quantification software. The patient tolerated the procedure well and there were no complications. The results of the coronary calcification analysis are provided below. Findings Coronary Artery Left Main (LM): 0 Left Anterior Descending (LAD): 95 Left Circumflex (LCX): 0 Right Coronary Artery (RCA): 0 Total Agatston Score: 95 Percentile Rankin-50% Calcium Scoring Interpretation: Different methods to categorize the overall amount of coronary plaque. Overall amount CAC SIS Visual of coronary plaque P1 Mild -100 <2 1-2 vessels with mild amount of plaque P2 Moderate 101-300 3-4 1-2 vessels with moderate amount, 3 vessels with mild amount of plaque P3 Severe 301-999 5-7 3 vessels with moderate amount, 1 vessel with severe amount of plaque P4 Extensive >1000 >8 2-3 vessels with severe amount of plaque Calcium Score: Mild: 1-2 vessels w/mild amount of plaque Conclusion: Mild plaquing noted. 05/11/24 1644 Date James Teranigntika Signature (if applicable): Date CC: Dr. James Beyer MD; Dr. Jairo Marcano MD Signed [facility] Limited Chest CT Cardiac Onl yon 05-11-[address] Cardiac Only [facility] Imaging Services [address] [place] [address] Cardiac Only MR#: [id number] Acct: [id number] Name: LILLIANA FLORES Rep #: [id number] : 1955 M 69 From: Rodrigue rebolledo MD PCP: Dr. Jairo Marcano MD Status: REG [facility] Study: Limited Chest CT Cardiac Only Date of Exam: Exam# [id number] Ordering Dr: Jairo Marcano MD [id number] STUDY: CT CHEST WITHOUT CONTRAST REASON FOR EXAM: Male, 69 years old. SCREEN RADIATION DOSAGE (If Supplied By Facility): CTDIvol = ( 12.19 ) mGy, DLP = ( 219.42 ) mGycm TECHNIQUE: Transaxial imaging was performed without the administration of intravenous contrast material. Cardiac over read examination. Individualized dose optimization techniques were used for this CT. COMPARISON: No relevant priors. FINDINGS: CHEST Minimal increased linear markings at the lung bases suggestive of underlying atelectasis and/or scarring. There is no demonstrated pleural abnormality. There are calcifications of the coronary arteries. There are small lymph nodes within the mediastinum, which are normal in size and morphology most compatible with reactive lymph hyperplasia. Normal hilar regions. Normal unenhanced pulmonary arteries. Normal aorta arch and descending thoracic aorta. Normal osseous structures. There is no demonstrated abnormality of the visualized upper abdomen. CT/Limited Chest CT Cardiac Only IMPRESSION: Coronary artery calcification. Electronically Signed: Rodrigue Dorantes MD at 9:22 EDT , CC: Dr. Jairo Marcano MD Drop Machine Operator: Signed [facility] Basic Metabolic Profile (BMP )on 04-12-2024 BUN/CRE 17.8 RATIO Normal 10-20 [facility] Comment on above: Performed By: #### L 500.2500, L500.4100, L501.9940 #### [facility] [address] [place], [address] CA,Total 9.4 mg/dL Normal 8.5-10.1 [facility] Comment on above: Performed By: #### L 500.2500, L500.4100, L501.9940 #### [facility] [address] [place], [address] Chloride [Moles/Vol] 104 mmol/L Normal 98-107 [facility] Comment on above: Performed By: #### L 500.2500, L500.4100, L501.9940 #### [facility] [address] [place], [address] CO2 [Moles/Vol] 29.0 mmol/L Normal 21.0-32.0 [facility] Comment on above: Performed By: #### L 500.2500, L500.4100, L501.9940 #### [facility] [address] [place], [address] Creatinine [Mass/Vol] 1.01 mg/dL Normal 0.70-1.30 [facility] Comment on above: Result Comment: The validity of the calculated GFR GFRAA in patients over 70 years has not been determined. Clinical correlation is essential. Performed By: #### L 500.2500, L500.4100, L501.9940 #### [facility] [address] [place], [address] EST GFR - AA 94 mL/min Normal >60 [facility] Comment on above: Result Comment: Afri can [place] GFR Calc Performed By: #### L 500.2500, L500.4100, L501.9940 #### [facility] [address] [place], [address] GAP 6 Normal 5-15 [facility] Comment on above: Performed By: #### L 500.2500, L500.4100, L501.9940 #### [facility] [address] [place], [address] GFR/1.73 sq M.predicted among non-blacks MDRD (S/P/Bld) [Vol rate/Area] 78 mL/min/{1.73_m2} Normal >60 [facility] Comment on above: Result Comment: Non- GFR Calc Performed By: #### L 500.2500, L500.4100, L501.9940 #### [facility] [address] [place], [address] Glucose [Mass/Vol] 97 mg/dL Normal 74-106 [facility] Comment on above: Performed By: #### L 500.2500, L500.4100, L501.9940 #### [facility] [address] [place], [address] Potassium [Moles/Vol] 4.7 mmol/L Normal 3.5-5.1 [facility] Comment on above: Performed By: #### L 500.2500, L500.4100, L501.9940 #### [facility] [address] [place], [address] Sodium [Moles/Vol] 139 mmol/L Normal 136-145 [facility] Comment on above: Performed By: #### L 500.2500, L500.4100, L501.9940 #### [facility] [address] [place], [address] Urea nitrogen [Mass/Vol] 18 mg/dL Normal 7-18 [facility] Comment on above: Performed By: #### L 500.2500, L500.4100, L501.9940 #### [facility] [address] [place], [address] Lipid Profileon 04-12-2024 Cholesterol [Mass/Vol] 195 mg/dL Normal 200 [facility] Comment on above: Result Comment: <200 mg/dL Desirable 200-240 mg/dL Borderline >240 mg/dL High Risk Performed By: #### L 500.2500, L500.4100, L501.9940 #### [facility] [address] [place], [address] Cholesterol in HDL [Mass/Vol] 71 mg/dL Normal [facility] Comment on above: Result Comment: The drugs N-Acetylcysteine and Metamizole may falsely depress this assay. Reference Range HDL <40 mg/dL Low HDL Cholesterol HDL >or= 60 mg/dL High HDL Cholesterol Performed By: #### L 500.2500, L500.4100, L501.9940 #### [facility] [address] [place], [address] Cholesterol in LDL [Mass/Vol] 102 mg/dL Normal 0-130 [facility] Comment on above: Performed By: #### L 500.2500, L500.4100, L501.9940 #### [facility] [address] [place], [address] Cholesterol in VLDL [Mass/Vol] 22 mg/dL Normal 5-40 [facility] Comment on above: Performed By: #### L 500.2500, L500.4100, L501.9940 #### [facility] [address] [place], [address] Triglyceride [Mass/Vol] 111 mg/dL Normal [facility] Comment on above: Result Comment: The drugs N-Acetylcysteine and Metamizole may falsely depress this assay. Serum Triglycerides Reference Interval Normal <150 mg/dL Borderline high 150 - 199 mg/dL High 200 - 499 mg/dL Very High > or = 500 mg/dL Performed By: #### L 500.2500, L500.4100, L501.9940 #### [facility] [address] [place], [address] PSA,Total- Diagnosticon 03-18 PSA, DIAGNOSTIC 0.01 ng/mL Normal 0.0-4.0 [facility] Comment on above: Result Comment: This test was performed using the TPSA assay method for the [employer] chemistry system. Values obtained with different assay methods cannot be used interchangably. When changing PSA assays in the course of monitoring a patient, additional sequential testing should be carried out to confirm baseline values. Performed By: #### L 500.2500, L500.4100, L501.9940 #### [facility] [address] [place], [place], [id number] No Panel InformationOrdered By: Qamar Parsons on 09-04-2023 Troponin I High Sensitivity 6 pg/mL 3.0-78.0 [facility] Comment on above: Please Note: New Monica t Units and Gender Specific Reference Ranges. For more information see Policy Stat Procedure [place] High Sensitivity Troponin (TNIH) and attachments. Absolute lymphocyte countOrd ered By: Qamar Parsons on 09-03-2023 Lymphocytes Auto (Unsp spec) [#/Vol] 2.59 10*3/uL 0.83-4.51 [facility] Automated lymphocyte count a s percentage of total leukocytesOrdered By: Qamar Parsons on 09-03-2023 Lymphocytes/100 WBC Auto (Unsp spec) 43.8 % 19-41 [facility] Basophil percentageOrdered B y: Qamar Parsons on 09-03-2023 Basophils/100 WBC (Bld) 0.5 % 0-1 [facility] Chloride [Moles/Vol] 107 mmol/L 98-107 [facility] Eosinophils/100 WBC (Bld) 1.4 % 0-5 [facility] Glucose [Mass/Vol] 130 mg/dL 74-106 [facility] Comment on above: Fasting Glucose resu lt greater than or equal to 126 mg/dL suggests DIABETES MELLITUS per A.D.A. criteria. Hemoglobin (Bld) [Mass/Vol] 11.4 g/dL 13.0-16.5 [facility] Monocytes/100 WBC (Bld) 9.8 % 0-10 [facility] Neutrophils (Bld) [#/Vol] 2.6 10*3/uL 2.0-7.7 [facility] Neutrophils/100 WBC (Bld) 44.3 % 47-70 [facility] Potassium [Moles/Vol] 4.2 mmol/L 3.5-5.1 [facility] Sodium [Moles/Vol] 138 mmol/L 136-145 [facility] WBC (Bld) [#/Vol] 5.9 10*3/uL 4.4-11.0 [facility] Determination of erythrocyte mean corpuscular volume (MCV)Ordered By: Qamar Parsons on 09-03-2023 MCV (RBC) [Entitic vol] 90.2 fL 80-94 [facility] Erythrocyte distribution wid th ratioOrdered By: Qamar Parsons on 09-03-2023 Erythrocyte distribution width (RBC) [Ratio] 12.2 % 11.6-14.6 [facility] Erythrocyte distribution wid th standard deviationOrdered By: Qamar Parsons on 09-03-2023 Erythrocyte distribution width (RBC) [Entitic vol] 40.2 fL 35.1-43.9 [facility] Hematocrit Auto (Bld) [Volum e fraction]Ordered By: Qamar Parsons on 09-03-2023 Hematocrit (Bld) [Volume fraction] 34.0 % 40-54 [facility] Immature granulocytes/100 WB C Auto (Bld)Ordered By: Qamar Parsons on 09-03-2023 Immature granulocytes/100 WBC (Bld) 0.200 % 0.0-0.9 [facility] Comment on above: IG% - Immature Granu locytes (promyelocytes, myelocytes and metamyelocytes) > 1% indicates that a LEFT SHIFT is Present. Laboratory - Chemistry and C hemistry - challengeOrdered By: Qamar Parsons on 09-03-2023 CO2 [Moles/Vol] 26.0 mmol/L 21.0-32.0 [facility] Urea nitrogen/Creatinine [Mass ratio] 19.3 mg/mg 10-20 [facility] - Hematology and Cell countsOrdered By: Qamar Parsons on 09-03-2023 MCH (RBC) [Entitic mass] 30.2 pg 27.0-32.0 [facility] MCHC (RBC) [Mass/Vol] 33.5 g/dL 32-36 [facility] Nucleated RBC/100 WBC (Bld) [Ratio] 0 % 0-5 [facility] Platelets (Bld) [#/Vol] 192 10*3/uL 150-450 [facility] No Panel InformationOrdered By: Qamar Parsons on 09-03-2023 Estimated Creatinine Clearance Calc 67.58 ml/min [facility] Estimated GFR (MDRD) Amer 98 mL/min >60 [facility] Comment on above: GFR Calc Estimated GFR (MDRD) Non-Af Amer 81 mL/min >60 [facility] Comment on above: Non- GFR Calc Platelet mean volume Damion-Ec ker (Bld) [Entitic vol]Ordered By: Qamar Parsons on 09-03-2023 Platelet mean volume (Bld) [Entitic vol] 8.7 fL 6.2-12.0 [facility] RBC Auto (Bld) [#/Vol]Ordere d By: Qamar Parsons on 09-03-2023 RBC (Bld) [#/Vol] 3.77 10*6/uL 4.6-6.2 [facility] Serum or plasma calcium ellyn urement (mass/volume)Ordered By: Qamar Parsons on 09-03-2023 Calcium [Mass/Vol] 8.6 mg/dL 8.5-10.1 [facility] Serum or plasma creatinine m easurement (mass/volume)Ordered By: Qamar Parsons on 09-03-2023 Creatinine [Mass/Vol] 0.98 mg/dL 0.70-1.30 [facility] Comment on above: The validity of the calculated GFR & GFRAA in patients over 70 years has not been determined. Clinical correlation is essential. Serum or plasma urea nitroge n measurement (mass/volume)Ordered By: Qamar Parsons on 09-03-2023 Urea nitrogen [Mass/Vol] 19 mg/dL 7-18 [facility] Thin prep Papanicolaou smear with manual screeningOrdered By: Qamar Parsons on 09-03-2023 Thin prep Papanicolaou smear with manual screening 5 5-15 [facility] Basophil percentageOrdered B y: Jairo Marcano on 04-06-2023 Cholesterol [Mass/Vol] 190 mg/dL <200 [facility] Comment on above: <200 mg/dL Desirable 200-240 mg/dL Borderline >240 mg/dL High Risk Triglyceride [Mass/Vol] 88 mg/dL <199 [facility] Comment on above: The drugs N-Acetylcy steine and Metamizole may falsely depress this assay.Serum Triglycerides Reference Interval Normal <150 mg/dL Borderline high 150 - 199 mg/dL High 200 - 499 mg/dL Very High > or = 500 mg/dL Serum or plasma cholesterol in HDL measurement (mass/volume)Ordered By: Jairo Marcano on 04-06-2023 Cholesterol in HDL [Mass/Vol] 73 mg/dL >40 [facility] Comment on above: The drugs N-Acetylcy steine and Metamizole may falsely depress this assay. Reference Range HDL <40 mg/dL Low HDL Cholesterol HDL >or= 60 mg/dL High HDL Cholesterol Serum or plasma cholesterol in VLDL measurement (mass/volume)Ordered By: Jairo Marcano on 04-06-2023 Cholesterol in VLDL [Mass/Vol] 18 mg/dL 5-40 [facility] Serum or plasma low density lipoprotein (LDL) cholesterol measurement (mass/volume)Ordered By: Jairo Marcano on 04-06-2023 Cholesterol in LDL [Mass/Vol] 99 mg/dL 0-130 [facility] No Panel InformationOrdered By: Dr. Thomas on 08-26-2022 Prostate Specific Antigen Total < 0.01 ng/mL 0.0-4.0 [facility] Comment on above: This test was perfor med using the TPSA assay method for the[employer] Is Good[employer]anee chemistry system. Values obtained with differentassay methods cannot be used interchangably.When changing PSA assays in the course of monitoring apatient, additional sequential testing should be carriedout to confirm baseline values. Basophil percentageon 2021 Chloride [Moles/Vol] 103 mmol/L 98-107 [facility] Work Phone: Cholesterol [Mass/Vol] 212 mg/dL <200 [facility] Work Phone: Comment on above: <200 mg/dL Desirable 200-240 mg/dL Borderline >240 mg/dL High Risk Glucose [Mass/Vol] 92 mg/dL 74-106 [facility] Work Phone: Potassium [Moles/Vol] 4.5 mmol/L 3.5-5.1 [facility] Work [facility]: Sodium [Moles/Vol] 138 mmol/L 136-145 [facility] Work Phone: Triglyceride [Mass/Vol] 89 mg/dL <199 [facility] Work Phone: Comment on above: The drugs N-Acetylcy steine and Metamizole may falsely depress this assay.Serum Triglycerides Reference Interval Normal <150 mg/dL Borderline high 150 - 199 mg/dL High 200 - 499 mg/dL Very High > or = 500 mg/dL Laboratory - Chemistry and C hemistry - challengeon 04-04-2022 CO2 [Moles/Vol] 29.0 mmol/L 21.0-32.0 [facility] Work Phone: Urea nitrogen/Creatinine [Mass ratio] 15.5 mg/mg 10-20 [facility] Work Phone: No Panel Informationon 04-04 Estimated GFR (MDRD) Amer 93 mL/min >60 [facility] Work Phone: Comment on above: GFR Calc Estimated GFR (MDRD) Non-Af Amer 77 mL/min >60 [facility] Work Phone: Comment on above: Non- GFR Calc Vitamin D 25-Hydroxy 33.8 ng/mL [facility] Work Phone: Comment on above: Vitamin D 25(OH) Sta tus Range Deficiency <20 ng/mL (50nmol/L) Insufficiency 20 - 30 ng/mL (50 - 75 nmol/L) Sufficiency 30 - 100 ng/mL (75 - 250 nmol/L) Toxicity >100 ng/mL (>250 nmol/L) Serum or plasma calcium ellyn urement (mass/volume)on 04-04-2022 Calcium [Mass/Vol] 9.1 mg/dL 8.5-10.1 [facility] Work Phone: Serum or plasma cholesterol in HDL measurement (mass/volume)on 04-04-2022 Cholesterol in HDL [Mass/Vol] 70 mg/dL >40 [facility] Work Phone: Comment on above: The drugs N-Acetylcy steine and Metamizole may falsely depress this assay. Reference Range HDL <40 mg/dL Low HDL Cholesterol HDL >or= 60 mg/dL High HDL Cholesterol Serum or plasma cholesterol in VLDL measurement (mass/volume)on 04-04-2022 Cholesterol in VLDL [Mass/Vol] 18 mg/dL 5-40 [facility] Work Phone: Serum or plasma creatinine m easurement (mass/volume)on 04-04-2022 Creatinine [Mass/Vol] 1.03 mg/dL 0.70-1.30 [facility] Work Phone: Comment on above: The validity of the calculated GFR & GFRAA in patients over 70 years has not been determined. Clinical correlation is essential. Serum or plasma low density lipoprotein (LDL) cholesterol measurement (mass/volume)on 04-04-2022 Cholesterol in LDL [Mass/Vol] 124 mg/dL 0-130 [facility] Work Phone: Serum or plasma urea nitroge n measurement (mass/volume)on 04-04-2022 Urea nitrogen [Mass/Vol] 16 mg/dL 7-18 [facility] Work Phone: Thin prep Papanicolaou smear with manual screeningon 04-04-2022 Thin prep Papanicolaou smear with manual screening 6 5-15 [facility] Work Phone: Vital Signs Date Time Vital Sign Value Performing Clinician Faci lity 03-17-2025 13:45-0400 Body height 175.[address] Jairo Marcano MD Work Phone: [facility] 03-17-2025 13:45-0400 Body mass index (BMI) [Ratio] 20.5 kg/m2 Dr. Jairo Marcano MD Work Phone: [facility] 03-17-2025 13:45-0400 Body weight 63.[address] Jairo Marcano MD Work Phone: [facility] 09-04-2023 02:08-0500 Body temperature 97.8 [degF] [facility] 09-04-2023 02:08-0500 Diastolic blood pressure 72 mm[Hg] [facility] 09-04-2023 02:08-0500 Heart rate 50 /min [facility] 09-04-2023 02:08-0500 Respiratory rate 16 /min [facility] 09-04-2023 02:08-0500 SaO2% (BldA) [Mass fraction] 100 % [facility] 09-04-2023 02:08-0500 Systolic blood pressure 143 mm[Hg] [facility] 09-03-2023 22:45-0500 Body height 175.26 cm [facility] 09-03-2023 22:45-0500 Body mass index (BMI) [Ratio] 21.5 kg/m2 [facility] 09-03-2023 22:45-0500 Body weight 66.22 kg [facility] Encounters Encounter Date Encounter Type Care Provider Facility Start: 03-31-2025 ambulatory Jairo Marcano Facility:[facility] Start: 03-22-2025 ambulatory Jairo Marcano Facility:[facility] Start: 03-17-2025 End: 03-17-[address] Bienvenido Ahumada MD -[facility] Work Phone: Start: 03-17-2025 End: 03-17-[address] Jairo Marcano MD Work Phone: -[facility] Start: 12-05-2024 End: 12-05-[address] Jairo Marcano MD -[facility] Work Phone: Start: 12-05-2024 End: 12-05-2024 ambulatory Jairo Marcano Facility:[facility] Start: 07-03-2024 Encounter for genera l adult medical examination without abnormal findings Jairo Marcano [facility] Start: 06-06-2024 ambulatory Donte Hayes Facility:[facility] Start: 06-06-2024 End: 06-06-2024 ambulatory Jairo Marcano Facility:[facility] Start: 05-11-2024 ambulatory James Beyer Facility:[facility] Start: 05-11-2024 End: 05-11-2024 ambulatory Jairo Marcano Facility:[facility] Start: 04-12-2024 End: 04-12-2024 [facility] Start: 09-03-2023 End: 09-04-2023 Emergency department patient visit [facility] Work Phone: Start: 04-06-2023 End: 04-06-2023 ambulatory [facility] Work Phone: Start: 04-06-2023 End: 04-06-2023 Patient encounter procedure [facility] Start: 08-26-2022 End: 08-26-2022 ambulatory [facility] Work Phone: Start: 08-26-2022 End: 08-26-2022 Patient encounter procedure [facility] Start: 04-04-2022 End: 04-04-2022 ambulatory [facility] Work Phone: Start: 04-04-2022 End: 04-04-2022 Patient encounter procedure [facility] Procedures Date Procedure Procedure Detail Performing Clinician Start: 12-05-2024 Plain X-ray of clavicle Dr. Jairo Marcano MD Work Phone: Start: 12-05-2024 Plain X-ray of shoulder Dr. Jairo Marcano MD Work Phone: Start: 09-03-2023 Plain chest X-ray Plan of Treatment Date Care Activity Detail Author Start: 09-04-2023 [facility] Start: 09-03-2023 [facility] MR Lower Extremity Joint [facility] Patient Education ED Chest Pain, Uncertain Cause [facility] Work Phone: Patient referral [facility] Work Phone: Payers Date Payer Category Payer Unknown [id number] 2024 Medicare [id number] 2024 Self-pay [id number] 2010 Private Health Insurance [facility] [id number] Medicare MEDICARE PART A B [id number] Private Health Insurance [id number] Unknown ANTHEM [id number] Unknown [id number] Unknown [id number] Unknown [id number] Unknown [id number] Unknown [id number] Unknown [id number] Unknown [id number] Unknown [id number] Unknown [id number] Social History Date Type Detail Facility Start: 09-21-2013 End: 09-03-2023 Tobacco smoking status NHIS Unknown if ever smoked [facility] Start: 1955 Sex Assigned At Male [facility] Start: 09-03-2023 Tobacco smoking stat us NHIS Never smoked tobacco (finding) [facility] Mental Status Date Assessment Result Facility 09-03-2023 Cognitive function Level Of Cons ciousness Awake;Alert;Appropriate [facility] Work Phone: Evaluation note Note Date & Type Note Facility Evaluation note No assessment information availa ble [facility] Work Phone: Evaluation note Note Date & Type Note Facility Evaluation note Diagnosis Onset Date Resolution Right shoulder pain acute Augus t 2024 1:44pm [facility] Work Phone: Hospital Discharge instructions Note Date & Type Note Facility Hospital Discharge instructions Ambulatory OrdersPT Referral Location: None Selected [facility] Work Phone: Advance Directives No Advanced Directives Records Found Advance Directive Response Recorded Date/ Time Advance Directives No September 15, 2013 9:22am Living Will Yes September 15 9:22am Power of [employer] Travel Counsel[employer] No September 15, 2013 9:22am Advance Directive Response Recorded Date/ Time Advance Directives No September 15, 2013 8:22am Living Will Yes September 15 8:22am Power of [employer] Travel Counselor No September 15, 2013 8:22am Advance Directive Response Recorded Date/ Time Advance Directives No September 15, 2013 8:22am Living Will Yes September 03 11:02pm Power of [employer] Travel Counselor No September 03, 2023 11:02pm Advance Directive Response Recorded Date/ Time Advance Directives No September 15, 2013 9:22am Chief Complaint and Reason for Visit Chief Complaint PSA Chief Complaint CHEST PAIN Chief Complaint Admit Date PAIN IN RIGHT CLAVICLE, RIGHT SHOULDER A pril 2024 9:11am LEFT SHOULDER March 17, 2025 1:4 4pm Reason for Visit Admit Date Right shoulder pain March 17, 2025 1:4 4pm Summary Purpose Family History No Family History Records Found Additional Source Comments Goals (unrecognized section and content) Goals may be documented in a n alternate sectionGoals may be documented in an alternate sectionGoals may be documented in an alternate sectionGoals may be documented in an alternate sectionGoals may be documented in an alternate section Care Teams (unrecognized sec tion and content) Team Status: Active Member Role Status Dates Dr. Edin Umaña MD Family Provider Active Dr. Jairo Marcano MD Primary Care Provider Active Team Status: Inactive Member Role Status Dates Dr. Jairo Marcano MD Primary Care Provider Active Dr. Carlos Thomas MD Attending Provider, Referr ing Provider Active Team Status: Inactive Member Role Status Dates Dr. Jairo Marcano MD Primary Care Provider, Attending Provider Active Team Status: Inactive Member Role Status Dates Dr. Jairo Marcano MD Primary Care Provider Active Dr. Qamar Parsons DO Emergency Provider Active Team Status: Active Member Role/Relationship Status Dates Dr. Edin Umaña MD Family Provider Active Dr. Jairo Marcano MD Primary Care Provider Active Team Status: Inactive Member Role/Relationship Status Dates Dr. Jairo Marcano MD Primary Care Provider Active Start: December 05, 2024 End: December 05, 2024 Dr. Jairo Marcano MD Attending Provider Active Start: December 05, 2024 End: December 05, 2024 Dr. Jairo Marcano MD Referring Provider Active Start: December 05, 2024 End: December 05, 2024 Team Status: Inactive Member Role/Relationship Status Dates Dr. Jairo Marcano MD Primary Care Provider Active Start: March 17, 2025 End: March 17, 2025 Dr. Jairo Marcano MD Referring Provider Active Start: March 17, 2025 End: March 17, 2025 Bienvenido Ahumada MD Attending Provider Active St art: March 17, 2025 End: March 17, 2025 (unrecognized sect ion and content) No Status Records Found INFORMATION SOURCE (unrecogn ized section and content) DATE CREATED AUTHOR 03/24/2025 [facility] FOR RECORDS PERTAINING TO PATIENTS WHO ARE OR HAVE BEEN ENROLLED IN A CHEMICAL DEPENDENCY/SUBSTANCEABUSE PROGRAM, SOME INFORMATION MAY BE OMITTED. This clinical summary was aggregated from multiple sources. Caution should be exercised in using it in the provision of clinical care. This summary normalizes information from multiple sources, and as a consequence, information in this document may materially change the coding, format and clinical context of patient data. In addition, data may be omitted in some cases. CLINICAL DECISIONS SHOULD BE BASED ON THE PRIMARY CLINICAL RECORDS. [facility] [employer] [facility]. provides no warranty or guarantee of the accuracy or completeness of information in this document.
--- OUTSIDE RECORDS SUMMARY | 2025-03-25 07:23 | XMS RPT_ITS | CCD ---
Author Organization [facility] Care Team Providers Care Technical Operations Vice President Name Role Phone Krys MIRANDA, Dr. Gill Primary Care Provider Krys MIRANDA, Dr. Gill Attending Provider Krys MIRANDA, Dr. Gill Referring Provider [phone] Brandyn MIRANDA, Bienvenido Attending Provider [phone] Donte Hayes Attending Unavailable Marcano, Jairo Referring Unavailable Marcano, Jairo Primary Care Unavailable Marcano, Jairo Consulting Unavailable PepitoJames daley Attending Unavailable Marcano, Jairo Referring Unavailable Marcano, Jairo Primary Care Unavailable Marcano, Jairo Consulting Unavailable Marcano, Jairo Referring Unavailable Marcano, Jairo Primary Care Unavailable Mollison, Bienvenido Attending Unavailable Marcano, Jairo Referring Unavailable Marcano, Jairo Attending Unavailable Marcano, Jairo Primary Care Unavailable Marcano, [...] Drug Class(es) Dates Sig (Normalized) Sig (Original) Suffield (Nk) (1 source) Start: 09-04-2023 Suffield (Nk) Active September 04, 2023 12:00am rosuvastatin [...] - PTon 03-22-2025 Inital Evaluation (1) - [facility] [address] [place] [address] / REHABILITATION SERVICES INITIAL EVALUATION MR#: [id number] Acct: [id number] Name: LILLIANA FLORES Rep #: [id number] : 1955 69 From: Lisbet ESCAMILLA Referring [...] to be FAXED BACK to us at [phone] for Medicare purposes. For Medicare only, by signing this I certify the plan of care. Please let me know if there are questions or concerns regarding this plan (more content not included)... [facility] Orthopedic Visit Reporton Orthopedic Visit Report [facility] [address] [place] [address] OFFICE VISIT Date of Service: 03/17/25 MR#: [id number] Acct: [id number] Name: LILLIANA FLORES Rep #: [id number] : 1955 Provider: Dr. Bienvenido prieto MD Age/Sex: 69/M Location: [facility] Status: Signed Intake Vital Signs 09/03/23 22:45 [...] by me, Dr. Bienvenido Ahumada MD 03/17/25 1885. Part of today???s visit was documented by [...] at side 0-60, No empty can, No Randall, No scapular winging and Yes belly press normal SHOULDER: normal motor and sens to axillary N, MRU and AIN/PIN. Hand warm well perfused normal radial pulse Supplemental Info [facility] Imaging Services [address] [place] [address] Shoulder min 2 Views MR#: [id number] Acct: [id number] Name: LILLIANA FLORES Rep #: [id number] : 1955 M 69 From: Rodrigue Dorantes MD PCP: Dr. Jairo Marcano MD Status: REG CLI Study: Shoulder min 2 Views Date of Exam: 12/05/24 Exam# [id number] Ordering Dr: Jairo Marcano MD PROCEDURE: SHOULDER MIN 2 VIEWS 12/05/2024 REASON FOR EXAM: PAIN TECHNIQUE: Four views of the right shoulder COMPARISON: None FINDINGS: Bones: Unremarkable. Joints: No significant joint space narrowing is seen. Soft tissues: Soft tissues are unremarkable. Other: RAD/Shoulder min 2 Views IMPRESSION: NO ACUTE FRACTURE OR DISLOCATION. Reading Location: [facility] Imaging Services [address] [place] [address] Clavicle MR#: [id number] Acct: [id number] Name: LILLIANA FLORES Rep #: [id number] : 1955 M 69 From: Rodrigue Dorantes MD PCP: Dr. Jairo Marcano MD Status: REG CLI Study: Clavicle Date of Exam: 12/05/24 Exam# [id number] Ordering Dr: Jairo Marcano MD PROCEDURE: CLAVICLE 12/05/2024 REASON FOR EXAM: PAIN TECHNIQUE: 2 view(s) of the right clavicle COMPARISON: None FINDINGS: RIGHT CLAVICLE: Bones right: Unremarkable Joints right: Unremarkable Soft tissues right: Unremarkable RAD/Clavicle IMPRESSION: NO EVIDENCE OF CLA (more content not included)... [facility] Clavicleon 12-05-2024 Clavicle [facility] Imaging Services [address] [place], [place] [address] Clavicle MR#: [id number] Acct: [id number] Name: LILLIANA FLORES Rep #: [id number] : 1955 M 69 From: Rodrigue rebolledo MD PCP: Dr. Jairo Marcano MD Status: REG CLI Study: Clavicle Date of Exam: 12/05/24 Exam# [id number] Ordering Dr: Jairo Marcano MD PROCEDURE: CLAVICLE 12/05/2024 REASON FOR EXAM: PAIN TECHNIQUE: 2 view(s) of the right clavicle COMPARISON: None FINDINGS: RIGHT CLAVICLE: Bones right: Unremarkable Joints right: Unremarkable Soft tissues right: Unremarkable RAD/Clavicle IMPRESSION: NO EVIDENCE OF CLAVICLE FRACTURE Reading Location: [place] [address] CC: Dr. Jairo Marcano MD Export Traffic Department Manager: Signed [facility] Shoulder min 2 Viewson 12-05 Shoulder min 2 Views [facility] Imaging Services [address] [place] [address] Shoulder min 2 Views MR#: [id number] Acct: [id number] Name: LILLIANA FLORES Rep #: [id number] : 1955 M 69 From: Rodrigue rebolledo MD PCP: Dr. Jairo Marcano MD Status: REG CLI Study: Shoulder min 2 Views Date of Exam: 12/05/24 Exam# [id number] Ordering Dr: Jairo Marcano MD PROCEDURE: SHOULDER MIN 2 VIEWS 12/05/2024 REASON FOR EXAM: PAIN TECHNIQUE: Four views of the right shoulder COMPARISON: None FINDINGS: Bones: Unremarkable. Joints: No significant joint space narrowing is seen. Soft tissues: Soft tissues are unremarkable. Other: RAD/Shoulder min 2 Views IMPRESSION: NO ACUTE FRACTURE OR DISLOCATION. Reading Location: [place] [address] CC: Dr. Jairo Marcano MD Export Traffic Department Manager: Signed [facility] Stress Reporton 06-06-2024 Stress Report [facility] Cardiovascular Services [address] [place] [address] MR#: [id number] Acct: [id number] Name: LILLIANA FLORES Rep #: [id number] : 1955 69 From: Donte Hayes MD [...] of 57%. This note was generated with [employer] software. It may contain incorrect words, spelling, and punctuation that were not noted in checking the note before signing. 06/06/24 1021 Date Donte Hayes MD CC: Dr. Jairo Marcano MD Date Dictated: 06/06/24 1018 Date Transcribed: 06/06/24 1018 Export Traffic Department Manager: AR Signed [facility] Coronary Angiography CTon Coronary Angiography CT [facility] Imaging Services [address] [place] [address] 05/11/24 1637 MR#: [id number] Acct: [id number] Name: LILLIANA FLORES Rep #: [id number] : 1955 69 From: James Beyer MD [...] MD; Dr. Jairo Marcano MD Signed [facility] Limited Chest CT Cardiac Onl yon 05-11-[address] Cardiac Only [facility] Imaging Services [address] [place] [address] Cardiac Only MR#: [id number] Acct: [id number] Name: LILLIANA FLORES Rep #: [id number] : 1955 M 69 From: Rodrigue rebolledo MD PCP: Dr. Jairo Marcano MD Status: REG [facility] Study: Limited Chest CT Cardiac Only Date of Exam: Exam# [id number] Ordering Dr: Jairo Marcano MD -[id number] STUDY: CT CHEST WITHOUT CONTRAST REASON [...] EDT , CC: Dr. Jairo Marcano MD [employer] Traffic Department Manager: Signed [facility] Basic Metabolic Profile (BMP )on 04-12-2024 BUN/CRE 17.8 RATIO Normal 10-20 [facility] Comment on above: Performed By: #### L 500.2500, L500.4100, L501.9940 #### [facility] [address] [place], [address] CA,Total 9.4 mg/dL Normal 8.5-10.1 [facility] Comment on above: Performed By: #### L 500.2500, L500.4100, L501.9940 #### [facility] [address] [place], [address] Chloride [Moles/Vol] 104 mmol/L Normal 98-107 [facility] Comment on above: Performed By: #### L 500.2500, L500.4100, L501.9940 #### [facility] [address] [place], [address] CO2 [Moles/Vol] 29.0 mmol/L Normal 21.0-32.0 [facility] Comment on above: Performed By: #### L 500.2500, L500.4100, L501.9940 #### [facility] [address] [place], [address] Creatinine [Mass/Vol] 1.01 mg/dL Normal 0.70-1.30 [facility] Comment on above: Result Comment: The validity of the calculated GFR GFRAA in patients over 70 years has not been determined. Clinical correlation is essential. Performed By: #### L 500.2500, L500.4100, L501.9940 #### [facility] [address] [place], [address] EST GFR - AA 94 mL/min Normal >60 [facility] Comment on above: Result Comment: Afri can Andorran GFR Calc Performed By: #### L 500.2500, L500.4100, L501.9940 #### [facility] [address] [place], [address] GAP 6 Normal 5-15 [facility] Comment on above: Performed By: #### L 500.2500, L500.4100, L501.9940 #### [facility] [address] [place], [address] GFR/1.73 sq M.predicted among non-blacks MDRD (S/P/Bld) [Vol rate/Area] 78 mL/min/{1.73_m2} Normal >60 [facility] Comment on above: Result Comment: Non- GFR Calc Performed By: #### L 500.2500, L500.4100, L501.9940 #### [facility] [address] [place], [address] Glucose [Mass/Vol] 97 mg/dL Normal 74-106 [facility] Comment on above: Performed By: #### L 500.2500, L500.4100, L501.9940 #### [facility] [address] [place], [address] Potassium [Moles/Vol] 4.7 mmol/L Normal 3.5-5.1 [facility] Comment on above: Performed By: #### L 500.2500, L500.4100, L501.9940 #### [facility] [address] [place], [address] Sodium [Moles/Vol] 139 mmol/L Normal 136-145 [facility] Comment on above: Performed By: #### L 500.2500, L500.4100, L501.9940 #### [facility] [address] [place], [address] Urea nitrogen [Mass/Vol] 18 mg/dL Normal 7-18 [facility] Comment on above: Performed By: #### L 500.2500, L500.4100, L501.9940 #### [facility] [address] [place], [address] Lipid Profileon 04-12-2024 Cholesterol [Mass/Vol] 195 mg/dL Normal [address] [facility] Comment on above: Result Comment: <200 mg/dL Desirable 200-240 mg/dL Borderline >240 mg/dL High Risk Performed By: #### L 500.2500, L500.4100, L501.9940 #### [facility] [address] [place], [address] Cholesterol in HDL [Mass/Vol] 71 mg/dL Normal [facility] Comment on above: Result Comment: The drugs N-Acetylcysteine and Metamizole may falsely depress this assay. Reference Range HDL <40 mg/dL Low HDL Cholesterol HDL >or= 60 mg/dL High HDL Cholesterol Performed By: #### L 500.2500, L500.4100, L501.9940 #### [facility] [address] [place], [address] Cholesterol in LDL [Mass/Vol] 102 mg/dL Normal 0-130 [facility] Comment on above: Performed By: #### L 500.2500, L500.4100, L501.9940 #### [facility] [address] [place], [address] Cholesterol in VLDL [Mass/Vol] 22 mg/dL Normal 5-40 [facility] Comment on above: Performed By: #### L 500.2500, L500.4100, L501.9940 #### [facility] [address] [place], [address] Triglyceride [Mass/Vol] 111 mg/dL Normal [facility] Comment on above: Result Comment: The drugs N-Acetylcysteine and Metamizole may falsely depress this assay. Serum Triglycerides Reference Interval Normal <150 mg/dL Borderline high 150 - 199 mg/dL High 200 - 499 mg/dL Very High > or = 500 mg/dL Performed By: #### L 500.2500, L500.4100, L501.9940 #### [facility] [address], [address] PSA,Total- Diagnosticon 03-18 PSA, DIAGNOSTIC 0.01 ng/mL Normal 0.0-4.0 [facility] Comment on above: Result Comment: This test was performed using the TPSA assay method for the [employer] chemistry system. Values obtained with different assay methods cannot be used interchangably. When changing PSA assays in the course of monitoring a patient, additional sequential testing should be carried out to confirm baseline values. Performed By: #### L 500.2500, L500.4100, L501.9940 #### [facility] [address] [place], [place], [address] No Panel InformationOrdered By: Qamar Parsons on 09-04-2023 Troponin I High Sensitivity 6 pg/mL 3.0-78.0 [facility] Comment on above: Please Note: New [place] t Units and Gender Specific Reference Ranges. For more information see Policy Stat Procedure Manti High Sensitivity Troponin (TNIH) and attachments. Absolute lymphocyte countOrd ered By: Qamar Parsons on 09-03-2023 Lymphocytes Auto (Unsp spec) [#/Vol] 2.59 10*3/uL 0.83-4.51 [facility] Automated lymphocyte count a s percentage of total leukocytesOrdered By: Qamar Parsons on 09-03-2023 Lymphocytes/100 WBC Auto (Unsp spec) 43.8 % 19-41 [facility] Basophil percentageOrdered B y: Qamar Parsons on 09-03-2023 Basophils/100 WBC (Bld) 0.5 % 0-1 [facility] Chloride [Moles/Vol] 107 mmol/L 98-107 [facility] Eosinophils/100 WBC (Bld) 1.4 % 0-5 [facility] Glucose [Mass/Vol] 130 mg/dL 74-106 [facility] Comment on above: Fasting Glucose resu lt greater than or equal to 126 mg/dL suggests DIABETES MELLITUS per A.D.A. criteria. Hemoglobin (Bld) [Mass/Vol] 11.4 g/dL 13.0-16.5 [facility] Monocytes/100 WBC (Bld) 9.8 % 0-10 [facility] Neutrophils (Bld) [#/Vol] 2.6 10*3/uL 2.0-7.7 [facility] Neutrophils/100 WBC (Bld) 44.3 % 47-70 [facility] Potassium [Moles/Vol] 4.2 mmol/L 3.5-5.1 [facility] Sodium [Moles/Vol] 138 mmol/L 136-145 [facility] WBC (Bld) [#/Vol] 5.9 10*3/uL 4.4-11.0 [facility] Determination of erythrocyte mean corpuscular volume (MCV)Ordered By: Qamar Parsons on 09-03-2023 MCV (RBC) [Entitic vol] 90.2 fL 80-94 [facility] Erythrocyte distribution wid th ratioOrdered By: Qamar Parsons on 09-03-2023 Erythrocyte distribution width (RBC) [Ratio] 12.2 % 11.6-14.6 [facility] Erythrocyte distribution wid th standard deviationOrdered By: Qamar Parsons on 09-03-2023 Erythrocyte distribution width (RBC) [Entitic vol] 40.2 fL 35.1-43.9 [facility] Hematocrit Auto (Bld) [Volum e fraction]Ordered By: Qamar Parsons on 09-03-2023 Hematocrit (Bld) [Volume fraction] 34.0 % 40-54 [facility] Immature granulocytes/100 WB C Auto (Bld)Ordered By: Qamar Parsons on 09-03-2023 Immature granulocytes/100 WBC (Bld) 0.200 % 0.0-0.9 [facility] Comment on above: IG% - Immature Granu locytes (promyelocytes, myelocytes and metamyelocytes) > 1% indicates that a LEFT SHIFT is Present. Laboratory - Chemistry and C hemistry - challengeOrdered By: Qamar Parsons on 09-03-2023 CO2 [Moles/Vol] 26.0 mmol/L 21.0-32.0 [facility] Urea nitrogen/Creatinine [Mass ratio] 19.3 mg/mg 10-20 [facility] - Hematology and Cell countsOrdered By: Qamar Parsons on 09-03-2023 MCH (RBC) [Entitic mass] 30.2 pg 27.0-32.0 [facility] MCHC (RBC) [Mass/Vol] 33.5 g/dL 32-36 [facility] Nucleated RBC/100 WBC (Bld) [Ratio] 0 % 0-5 [facility] Platelets (Bld) [#/Vol] 192 10*3/uL 150-450 [facility] No Panel InformationOrdered By: Qamar Parsons on 09-03-2023 Estimated Creatinine Clearance Calc 67.58 ml/min [facility] Estimated GFR (MDRD) Amer 98 mL/min >60 [facility] Comment on above: GFR Calc Estimated GFR (MDRD) Non-Af Amer 81 mL/min >60 [facility] Comment on above: Non- GFR Calc Platelet mean volume Damion-Ec ker (Bld) [Entitic vol]Ordered By: Qamar Parsons on 09-03-2023 Platelet mean volume (Bld) [Entitic vol] 8.7 fL 6.2-12.0 [facility] RBC Auto (Bld) [#/Vol]Ordere d By: Qamar Parsons on 09-03-2023 RBC (Bld) [#/Vol] 3.77 10*6/uL 4.6-6.2 [facility] Serum or plasma calcium ellyn urement (mass/volume)Ordered By: Qamar Parsons on 09-03-2023 Calcium [Mass/Vol] 8.6 mg/dL 8.5-10.1 [facility] Serum or plasma creatinine m easurement (mass/volume)Ordered By: Qamar Parsons on 09-03-2023 Creatinine [Mass/Vol] 0.98 mg/dL 0.70-1.30 [facility] Comment on above: The validity of the calculated GFR & GFRAA in patients over 70 years has not been determined. Clinical correlation is essential. Serum or plasma urea nitroge n measurement (mass/volume)Ordered By: Qamar Parsons on 09-03-2023 Urea nitrogen [Mass/Vol] 19 mg/dL 7-18 [facility] Thin prep Papanicolaou smear with manual screeningOrdered By: Qamar Parsons on 09-03-2023 Thin prep Papanicolaou smear with manual screening 5 5-15 [facility] Basophil percentageOrdered B y: Jairo Marcano on 04-06-2023 Cholesterol [Mass/Vol] 190 mg/dL <200 [facility] Comment on above: <200 mg/dL Desirable 200-240 mg/dL Borderline >240 mg/dL High Risk Triglyceride [Mass/Vol] 88 mg/dL <199 [facility] Comment on above: The drugs N-Acetylcy steine and Metamizole may falsely depress this assay.Serum Triglycerides Reference Interval Normal <150 mg/dL Borderline high 150 - 199 mg/dL High 200 - 499 mg/dL Very High > or = 500 mg/dL Serum or plasma cholesterol in HDL measurement (mass/volume)Ordered By: Jairo Marcano on 04-06-2023 Cholesterol in HDL [Mass/Vol] 73 mg/dL >40 [facility] Comment on above: The drugs N-Acetylcy steine and Metamizole may falsely depress this assay. Reference Range HDL <40 mg/dL Low HDL Cholesterol HDL >or= 60 mg/dL High HDL Cholesterol Serum or plasma cholesterol in VLDL measurement (mass/volume)Ordered By: Jairo Marcano on 04-06-2023 Cholesterol in VLDL [Mass/Vol] 18 mg/dL 5-40 [facility] Serum or plasma low density lipoprotein (LDL) cholesterol measurement (mass/volume)Ordered By: Jairo Marcano on 04-06-2023 Cholesterol in LDL [Mass/Vol] 99 mg/dL 0-130 [facility] No Panel InformationOrdered By: Dr. Thomas on 08-26-2022 Prostate Specific Antigen Total < 0.01 ng/mL 0.0-4.0 [facility] Comment on above: This test was perfor med using the TPSA assay method for the[employer]dayana[employer]oV[employer] chemistry system. Values obtained with differentassay methods cannot be used interchangably.When changing PSA assays in the course of monitoring apatient, additional sequential testing should be carriedout to confirm baseline values. Basophil percentageon 2021 Chloride [Moles/Vol] 103 mmol/L 98-107 [facility] Work Phone: Cholesterol [Mass/Vol] 212 mg/dL <200 [facility] Work Phone: Comment on above: <200 mg/dL Desirable 200-240 mg/dL Borderline >240 mg/dL High Risk Glucose [Mass/Vol] 92 mg/dL 74-106 [facility] Work Phone: Potassium [Moles/Vol] 4.5 mmol/L 3.5-5.1 [facility] Work Phone: Sodium [Moles/Vol] 138 mmol/L 136-145 [facility] Work Phone: Triglyceride [Mass/Vol] 89 mg/dL <199 [facility] Work Phone: Comment on above: The drugs N-Acetylcy steine and Metamizole may falsely depress this assay.Serum Triglycerides Reference Interval Normal <150 mg/dL Borderline high 150 - 199 mg/dL High 200 - 499 mg/dL Very High > or = 500 mg/dL Laboratory - Chemistry and C hemistry - challengeon 04-04-2022 CO2 [Moles/Vol] 29.0 mmol/L 21.0-32.0 [facility] Work Phone: Urea nitrogen/Creatinine [Mass ratio] 15.5 mg/mg 10-20 [facility] Work Phone: No Panel Informationon 04-04 Estimated GFR (MDRD) Amer 93 mL/min >60 [facility] Work Phone: Comment on above: GFR Calc Estimated GFR (MDRD) Non-Af Amer 77 mL/min >60 [facility] Work Phone: Comment on above: Non- GFR Calc Vitamin D 25-Hydroxy 33.8 ng/mL [facility] Work Phone: Comment on above: Vitamin D 25(OH) Sta tus Range Deficiency <20 ng/mL (50nmol/L) Insufficiency 20 - 30 ng/mL (50 - 75 nmol/L) Sufficiency 30 - 100 ng/mL (75 - 250 nmol/L) Toxicity >100 ng/mL (>250 nmol/L) Serum or plasma calcium ellyn urement (mass/volume)on 04-04-2022 Calcium [Mass/Vol] 9.1 mg/dL 8.5-10.1 [facility] Work Phone: Serum or plasma cholesterol in HDL measurement (mass/volume)on 04-04-2022 Cholesterol in HDL [Mass/Vol] 70 mg/dL >40 [facility] Work Phone: Comment on above: The drugs N-Acetylcy steine and Metamizole may falsely depress this assay. Reference Range HDL <40 mg/dL Low HDL Cholesterol HDL >or= 60 mg/dL High HDL Cholesterol Serum or plasma cholesterol in VLDL measurement (mass/volume)on 04-04-2022 Cholesterol in VLDL [Mass/Vol] 18 mg/dL 5-40 [facility] Work Phone: Serum or plasma creatinine m easurement (mass/volume)on 04-04-2022 Creatinine [Mass/Vol] 1.03 mg/dL 0.70-1.30 [facility] Work Phone: Comment on above: The validity of the calculated GFR & GFRAA in patients over 70 years has not been determined. Clinical correlation is essential. Serum or plasma low density lipoprotein (LDL) cholesterol measurement (mass/volume)on 04-04-2022 Cholesterol in LDL [Mass/Vol] 124 mg/dL 0-130 [facility] Work Phone: Serum or plasma urea nitroge n measurement (mass/volume)on 04-04-2022 Urea nitrogen [Mass/Vol] 16 mg/dL 7-18 [facility] Work Phone: Thin prep Papanicolaou smear with manual screeningon 04-04-2022 Thin prep Papanicolaou smear with manual screening 6 5-15 [facility] Work Phone: Vital Signs Date Time Vital Sign Value Performing Clinician Faci lity 03-17-2025 13:45-0400 Body height 175.[address] Jairo Marcano MD Work Phone: [facility] 03-17-2025 13:45-0400 Body mass index (BMI) [Ratio] 20.5 kg/m2 Dr. Jairo Marcano MD Work Phone: [facility] 03-17-2025 13:45-0400 Body weight 63.[address] Jairo Marcano MD Work Phone: [facility] 09-04-2023 02:08-0500 Body temperature 97.8 [degF] [facility] 09-04-2023 02:08-0500 Diastolic blood pressure 72 mm[Hg] [facility] 09-04-2023 02:08-0500 Heart rate 50 /min [facility] 09-04-2023 02:08-0500 Respiratory rate 16 /min [facility] 09-04-2023 02:08-0500 SaO2% (BldA) [Mass fraction] 100 % [facility] 09-04-2023 02:08-0500 Systolic blood pressure 143 mm[Hg] [facility] 09-03-2023 22:45-0500 Body height 175.26 cm [facility] 09-03-2023 22:45-0500 Body mass index (BMI) [Ratio] 21.5 kg/m2 [facility] 09-03-2023 22:45-0500 Body weight 66.22 kg [facility] Encounters Encounter Date Encounter Type Care Provider Facility Start: 03-31-2025 ambulatory Jairo Marcano Facility:[facility] Start: 03-22-2025 ambulatory Jairo Marcano Facility:[facility] Start: 03-17-2025 End: 03-17-[address] Bienvenido Ahumada MD -[facility] Work Phone: Start: 03-17-2025 End: 03-17-[address] Jairo Marcano MD Work Phone: -[facility] Start: 12-05-2024 End: 12-05-[address] Jairo Marcano MD [facility] Work Phone: Start: 12-05-2024 End: 12-05-2024 ambulatory Jairo Marcano Facility:[facility] Start: 07-03-2024 Encounter for genera l adult medical examination without abnormal findings Jairo Marcano [facility] Start: 06-06-2024 ambulatory Donte Hayes Facility:[facility] Start: 06-06-2024 End: 06-06-2024 ambulatory Jairo Marcano Facility:[facility] Start: 05-11-2024 ambulatory James Beyer Facility:[facility] Start: 05-11-2024 End: 05-11-2024 ambulatory Jairo Marcano Facility:[facility] Start: 04-12-2024 End: 04-12-2024 [facility] Start: 09-03-2023 End: 09-04-2023 Emergency department patient visit [facility] Work Phone: Start: 04-06-2023 End: 04-06-2023 ambulatory [facility] Work Phone: Start: 04-06-2023 End: 04-06-2023 Patient encounter procedure [facility] Start: 08-26-2022 End: 08-26-2022 ambulatory [facility] Work Phone: Start: 08-26-2022 End: 08-26-2022 Patient encounter procedure [facility] Start: 04-04-2022 End: 04-04-2022 ambulatory [facility] Work Phone: Start: 04-04-2022 End: 04-04-2022 Patient encounter procedure [facility] Procedures Date Procedure Procedure Detail Performing Clinician Start: 12-05-2024 Plain X-ray of clavicle Dr. Jairo Marcano MD Work Phone: Start: 12-05-2024 Plain X-ray of shoulder Dr. Jairo Marcano MD Work Phone: Start: 09-03-2023 Plain chest X-ray Plan of Treatment Date Care Activity Detail Author Start: 09-04-2023 [facility] Start: 09-03-2023 [facility] MR Lower Extremity Joint [facility] Patient Education ED Chest Pain, Uncertain Cause [facility] Work Phone: Patient referral [facility] Work Phone: Payers Date Payer Category Payer Unknown [id number] 2024 Medicare [id number] 2024 Self-pay [id number] 2010 Private Health Insurance [facility] [id number] Medicare MEDICARE PART A B [id number] Private Health Insurance [id number] Unknown ANTHEM [id number] Unknown [id number] Unknown [id number] Unknown [id number] Unknown [id number] Unknown [id number] Unknown [id number] Unknown [id number] Unknown [id number] Unknown [id number] Social History Date Type Detail Facility Start: 09-21-2013 End: 09-03-2023 Tobacco smoking status NHIS Unknown if ever smoked [facility] Start: 1955 Sex Assigned At Male [facility] Start: 09-03-2023 Tobacco smoking stat us NHIS Never smoked tobacco (finding) [facility] Mental Status Date Assessment Result Facility 09-03-2023 Cognitive function Level Of Cons ciousness Awake;Alert;Appropriate [facility] Work Phone: Evaluation note Note Date & Type Note Facility Evaluation note No assessment information availa ble [facility] Work Phone: Evaluation note Note Date & Type Note Facility Evaluation note Diagnosis Onset Date Resolution Right shoulder pain acute Augus t 2024 1:44pm [facility] Work Phone: Hospital Discharge instructions Note Date & Type Note Facility Hospital Discharge instructions Ambulatory OrdersPT Referral Location: None Selected [facility] Work Phone: Advance Directives No Advanced Directives Records Found Advance Directive Response Recorded Date/ Time Advance Directives No September 15, 2013 9:22am Living Will Yes September 15 9:22am Power of Forest Fire Officer No September 15, 2013 9:22am Advance Directive Response Recorded Date/ Time Advance Directives No September 15, 2013 8:22am Living Will Yes September 15 8:22am Power of Forest Fire Officer No September 15, 2013 8:22am Advance Directive Response Recorded Date/ Time Advance Directives No September 15, 2013 8:22am Living Will Yes September 03 11:02pm Power of Forest Fire Officer No September 03, 2023 11:02pm Advance Directive [...] section and content) DATE CREATED AUTHOR 03/24/2025 [facility] FOR RECORDS PERTAINING TO PATIENTS WHO ARE [...] BE BASED ON THE PRIMARY CLINICAL RECORDS. [facility] [employer] [facility]. provides no warranty or guarantee of the accuracy or completeness of information in this document.
--- NOTE | 2025-03-25 07:32 | MRI_ITS ---
PROCEDURE: UPPER EXT JOINT ONLY(ROUTINE) 03/25/2025 REASON FOR EXAM: PAIN TECHNIQUE: T1, T2, PD, MRI right shoulder) multiplanar and multisequence images were obtained without IV contrast administration. COMPARISON: COMPARISON: December 05, 2024 FINDINGS: Bone Marrow: There is no bony contusion or occult fracture. AC joint: There is moderate AC joint hypertrophy without evidence of separation. There is a trace AC joint effusion. There is a type 2 acromion. Rotator cuff: There is no muscular atrophy. There is a partial-thickness 25% width tear of the posterior margin articular surface, of the supraspinatus footprint. There is severe distal infraspinatus tendinopathy without full-thickness tear or retraction. There is moderate distal subscapularis tendinopathy without full- thickness tear or retraction. The teres minor appears intact. Labrum: There is a tear of the posterior superior labrum from the 10 o'clock-11 o'clock position. Biceps tendon: The biceps tendon appears intact, with intact anchors. Effusion: There is no significant joint effusion. There is fluid in the subacromial subdeltoid bursa with bursitis. MRI/Upper Ext Joint Only(Routine) IMPRESSION: There is moderate AC joint hypertrophy without evidence of separation. There is a trace AC joint effusion. There is a partial-thickness 25% width tear of the posterior margin articular s urface, of the supraspinatus footprint. There is severe distal infraspinatus tendinopathy without full-thickness tear o r retraction. There is moderate distal subscapularis tendinopathy without full-thickness tear or retraction. There is a tear of the posterior superior labrum from the 10 o'clock-11 o'clock position. There is fluid in the subacromial subdeltoid bursa with bursitis. Reading Location: [facility]
== END | disposition home or self-care (01) ==
PROVIDERS: PCP Family Medicine; Referring Provider Orthopaedic Surgery Sports Medicine; Visit Provider Orthopaedic Surgery Sports Medicine
DX: M25.511 Pain in right shoulder (principal)
CPT/HCPCS: 73221

== ENCOUNTER → 2025-04-13 | Outpatient (CLI) | payer MEDICARE, SELFPAY ==
[2025-04-13 13:14] LABS: Anion Gap 13 (5-15); BUN 18 mg/dL (4-19); BUN/Creat Ratio 19.0 RATIO (10-20); Calcium,Total 9.6 mg/dL (7.6-11.0); Carbon Dioxide 23.8 mmol/L (21.0-32.0); Chloride 102 mmol/L (98-108); Cholesterol 157 mg/dL (<=200); Glucose 87 mg/dL (70-99); Low Density Lipoprotein Calc. 61 mg/dL; Potassium 4.5 mmol/L (3.3-5.1); Triglycerides 74 mg/dL; Very Low Density Lipoprotein 15 mg/dL (5-40); cholesterol:hdl ratio screen 1.94
[2025-04-13 13:15] LABS: PSA,Total - Annual Screen < 0.02 ng/mL (0.02-4.00)
== END | disposition home or self-care (01) ==
LOC: MFPLAB 09:54
PROVIDERS: PCP Family Medicine; Referring Provider Family Medicine; Visit Provider Family Medicine
DX: Z00.00 Encounter for general adult medical examination without abnormal findings (principal); I25.10 Atherosclerotic heart disease of native coronary artery without angina pectoris; Z85.46 Personal history of malignant neoplasm of prostate; Z12.5 Encounter for screening for malignant neoplasm of prostate
CPT/HCPCS: 36415; 80048; 80061; 84153; G0103